=== PATIENT | male | born 1950 | race Caucasian/White ===

== ENCOUNTER → 2016-12-07 | Outpatient (CLI) | payer MEDICARE ==
[2016-12-07 10:53] LABS: CH 30.7; CHCM 33.5; HCT 40.2 % (39.0-53.0); HDW 2.89; MCH 29.8 pg (25.0-35.0); MCHC 32.3 g/dL (31.0-37.0); MCV 92.1 fL (80.0-100.0); Mean Platelet Volume 7.1; RBC 4.36 m/uL (4.30-5.90); RDW 13.4 % (11.5-15.5); WBC 9.5 k/uL (3.8-10.6)
[2016-12-07 11:23] LABS: Anion Gap 15 mmol/L; Blood Urea Nitrogen 12 mg/dL (9-20); Calcium 9.8 mg/dL (8.4-10.2); Carbon Dioxide 23 mmol/L (22-30); Chloride 105 mmol/L (98-107); Glucose 113 mg/dL (74-99); Non-African American GFR(MDRD) >60 (>60 ml/min/1.73 sqM); Potassium 4.5 mmol/L (3.5-5.1); Sodium 143 mmol/L (137-145)
== END | disposition home or self-care (01) ==
LOC: LABPAT 09:48
PROVIDERS: ATTEND Internal Medicine Clinical Cardiac Electrophysiology
DX: I10 Essential (primary) hypertension (principal); I48.1 Persistent atrial fibrillation
CPT/HCPCS: 36415; 80048; 85027

== ENCOUNTER 2017-01-13 09:29 | Day surgery (SDC) | payer MEDICARE ==
[2017-01-11 08:44] VITALS: BMI 30.1
[~2017-01-13 09:29] MED LIST: LACTATED RINGERS 1,000 ML IV SCH; LIDOCAINE 1% 20 ML VIAL (10MG/ML) FOR IV START INTRADERMA PRN
[2017-01-13] MEDS ORDERED: LIDOCAINE 1% 20 ML VIAL (10MG/ML) FOR IV START SQ ONE (09:50)
[2017-01-13 09:59] VITALS: RESP 16; TEMP 98
[2017-01-13] MEDS ORDERED: PROPOFOL 10 MG/ML 20 ML VIAL IV ONE (10:31)
--- NOTE | 2017-01-13 10:59 | P.PCN ---
Date of Procedure: 01/13/17 Procedure(s) Performed: Brief history: Patient is a pleasant 66-year-old white male, scheduled for an elective upper endoscopy as well as colonoscopy as a part of evaluation of long-standing history of gastroesophageal reflux symptoms and screening for colorectal neoplasia. He has been on Protonix 40 mg twice daily and continues to do well. He denies any dysphagia or odynophagia. Procedure performed: Esophagogastroduodenoscopy and biopsy Colonoscopy snare polypectomy: Preoperative diagnosis: GERD Screening for colon cancer Anesthesia: MAC Procedure: After informed consent was obtained from the patient was brought into the endoscopy unit and IV conscious sedation was administered by anesthesia under continuous monitoring. Initially upper endoscopy was done. The Olympus GF 160 video endoscope was inserted inserted into the mouth and esophagus intubated without any difficulty and was gradually advanced into the stomach and duodenum and carefully examined. The bulb and second part of the duodenum appeared normal. The scope was then withdrawn into the stomach adequately insufflated with air and upon careful examination the antrum had mild gastritis and biopsies were done from this area. The body, cardia and fundus appeared normal. The scope was then withdrawn into the esophagus. The GE junction was located at 40 cm to the incisors. It appeared regular with no erythema erosions or ulcerations. Rest of the esophagus appeared normal. Patient tolerated the procedure well. At this time the patient continued to remain sedation. Initial digital rectal examination was normal. Olympus CF 160 video colonoscope was then inserted into the rectum and gradually advanced to the cecum without any difficulty. Careful examination was performed as the scope was gradually being withdrawn. The prep was excellent. In the base of the cecum there was a 1 cm polyp removed by snare polypectomy in the ascending colon there were 2 polyps measuring 1 cm in size removed by snare polypectomy. In the transverse colon there were 2 polyps measuring 5 mm each removed by snare polypectomy. In the sigmoid colon and descending colon there was a 1 cm polyp respectively in each areas which were removed by snare polypectomy. The rectum appeared normal . Retroflexion was performed in the rectum and no lesions were noted. Patient tolerated the procedure well. Impression: 1. Upper endoscopy revealed mild antral gastritis but no evidence of esophagitis or peptic ulcer disease 2. Colonoscopy revealed a) 1 cm cecal polyp status post polypectomy b) 1 cm 2 ascending colon polyp status post polypectomy c) 5 mm 2 transverse colon polyp status post polypectomy d) 1 cm descending colon polyp serous was snare polypectomy e) 1 cm sigmoid polyp status post snare polypectomy Recommendations: Findings of this examination were discussed with the patient as well as his family. He was advised to follow with the biopsy results. He will continue Protonix 40 mg twice daily and follow antireflux measures. If the biopsies of the colon polyp showed tubular adenoma he can have a repeat colonoscopy in 3 years
[2017-01-13 11:40] VITALS: BP 140/89; PULSE 55
== END 2017-01-13 12:22 | disposition home or self-care (01) ==
LOC: ORWHC2ENDO 09:29
PROVIDERS: ATTEND Internal Medicine Gastroenterology
DX: Z12.11 Encounter for screening for malignant neoplasm of colon (principal); D12.0 Benign neoplasm of cecum; D12.2 Benign neoplasm of ascending colon; D12.3 Benign neoplasm of transverse colon; D12.4 Benign neoplasm of descending colon; D12.5 Benign neoplasm of sigmoid colon; K21.9 Gastro-esophageal reflux disease without esophagitis; K29.50 Unspecified chronic gastritis without bleeding; I10 Essential (primary) hypertension; E78.5 Hyperlipidemia, unspecified; I48.91 Unspecified atrial fibrillation; M19.90 Unspecified osteoarthritis, unspecified site; Z79.01 Long term (current) use of anticoagulants; Z79.899 Other long term (current) drug therapy
CPT/HCPCS: 88305; 88342; 45385; 43239; J2704; 99153

== ENCOUNTER → 2017-02-06 | Outpatient (CLI) | payer MEDICARE ==
--- NOTE | 2017-02-07 07:11 | XR ---
EXAMINATION TYPE: XR chest 2V DATE OF EXAM: 02/06/2017 10:13 AM COMPARISON: Prior chest x-ray February 20, 2016 HISTORY: Cough and congestion for 3 weeks. TECHNIQUE: Frontal and lateral views of the chest are obtained. FINDINGS: There is no focal air space opacity, pleural effusion, or pneumothorax seen. Underlying em physematous change is seen. The cardiac silhouette size is within normal limits. Metallic hardware l eft shoulder level is once again partially imaged. Multilevel spurring in thoracic spine is present. IMPRESSION: No acute pulmonary process.
== END | disposition home or self-care (01) ==
LOC: RADXRYALE 10:01
PROVIDERS: ATTEND Physician Assistant Medical
DX: J18.0 Bronchopneumonia, unspecified organism (principal)
CPT/HCPCS: 71020

== ENCOUNTER → 2018-05-22 | Outpatient (CLI) | payer MEDICARE ==
[2018-05-22 12:34] LABS: HCT 40.4 % (39.0-53.0); MCH 28.8 pg (25.0-35.0); MCHC 32.1 g/dL (31.0-37.0); MCV 89.8 fL (80.0-100.0); Mean Platelet Volume 6.7; Platelet Count 252 k/uL (150-450); RDW 14.5 % (11.5-15.5)
[2018-05-22 12:44] LABS: Potassium 4.7 mmol/L (3.5-5.1)
== END | disposition home or self-care (01) ==
LOC: LABPAT 12:02
PROVIDERS: ATTEND Internal Medicine Interventional Cardiology
DX: Z01.812 Encounter for preprocedural laboratory examination (principal); I48.1 Persistent atrial fibrillation
CPT/HCPCS: 36415; 80051; 82565; 84520; 85027

== ENCOUNTER → 2018-05-29 | Day surgery (SDC) | payer MEDICARE ==
[2018-05-25 15:33] VITALS: BMI 28.7
[~2018-05-29] MED LIST changes: +ACETAMINOPHEN TAB 325 MG TAB PO PRN; +ALLOPURINOL 300 MG TAB PO SCH; +ATORVASTATIN 80 MG TAB PO SCH; +CHOLECALCIFEROL 1,000 UNIT TAB PO SCH; +CITALOPRAM HYDROBROMIDE 20 MG TAB PO SCH; +COLCHICINE 0.6 MG EACH PO PRN; +FENOFIBRATE NANOCRYSTALLIZED 145 MG PO SCH; +FEXOFENADINE HCL 180 MG PO SCH; +FLECAINIDE 50 MG TAB PO SCH; +LIDOCAINE 1% INJ 10MG/ML (20 ML MDV) ONE; +METOPROLOL TARTRATE 50 MG TAB PO SCH; +MIDAZOLAM 2 MG/2 ML VIAL ONE; +NON-FORMULARY DRUG (Losartan Potassium [Losartan Potassium] 100 MG) PO SCH; +NON-FORMULARY DRUG (Multivitamin [Men's Multi-Vitamin] 1 EACH) PO SCH; +PANTOPRAZOLE 40 MG TABLET PO SCH; +PROPOFOL 10 MG/ML 20 ML VIAL IV ONE; +RIVAROXABAN 10 MG TAB PO SCH; +SODIUM CHLORIDE 0.9% 1,000 ML IV ONE; +SODIUM CHLORIDE 0.9% 1,000 ML IV SCH
[2018-05-29 07:52] VITALS: TEMP 97.5
--- NOTE | 2018-05-29 08:00 | ECHOT ---
TRANSESOPHAGEAL ECHOCARDIOGRAM INDICATION: Evaluation of left atrial appendage. PROCEDURE: After explaining the procedure to the patient as well as risks and the complications, blood pressure, heart rate, O2 saturation was monitored. The throat was sprayed with Cetacaine. He received sedation per anesthesia department. The probe was introduced in the esophagus without difficulty. Images were obtained. Following that, the probe was removed. There was no immediate complication. FINDINGS: Left atrial size is dilated. Left atrial appendage is normal. Left ventricular size and systolic function normal. The aortic valve is normal. Mitral valve is normal. Tricuspid valve is normal. Descending thoracic aorta appears to be normal. No pericardial effusion was noted. Contrast bubble study revealed no evidence of significant shunting across the interatrial septum. Doppler, pulse wave and color Doppler obtained, revealed moderate mitral with mild tricuspid regurgitation. There was evidence of patent foramen ovale with [id number] shunting. CONCLUSION: 1. Dilated left atrium with normal appearance left atrial appendage. 2. Normal left ventricular size and systolic function. 3. Moderate mitral with mild tricuspid regurgitation. 4. Patent foramen ovale. 5. Normal appearance of the descending thoracic aorta. MMODL / IJN: [id number] /
--- NOTE | 2018-05-29 08:06 | CE ---
CARDIAC ELECTROPHYSIOLOGY REPORT CARDIOVERSION PROCEDURE NOTE: INDICATION: Atrial fibrillation. After I explained the procedure to the patient as well as risks and the complications and performing transesophageal echocardiogram and obtaining sedated state per anesthesia department, a synchronized biphasic cardioversion using 200 joules was successful in restoring normal sinus rhythm. There was no immediate complication. BRUNILDA / ALISSA: [id number] /
[2018-05-29 08:32] VITALS: RESP 16
[2018-05-29 09:20] VITALS: BP 106/65; PULSE 58
== END | disposition home or self-care (01) ==
LOC: CATHCVL 05:58
PROVIDERS: ATTEND Internal Medicine Interventional Cardiology
DX: I48.1 Persistent atrial fibrillation (principal); I08.1 Rheumatic disorders of both mitral and tricuspid valves; I10 Essential (primary) hypertension; E78.2 Mixed hyperlipidemia; Q21.1 Atrial septal defect; G47.33 Obstructive sleep apnea (adult) (pediatric); K21.9 Gastro-esophageal reflux disease without esophagitis; F17.210 Nicotine dependence, cigarettes, uncomplicated; Z79.01 Long term (current) use of anticoagulants; Z79.899 Other long term (current) drug therapy; Z96.653 Presence of artificial knee joint, bilateral
CPT/HCPCS: 93312; 93320; 93325; 92960; J2250; J2001; J2704; 93005

== ENCOUNTER → 2018-09-05 | Outpatient (CLI) | payer MEDICARE ==
[2018-09-05 13:37] LABS: HCT 45.2 % (39.0-53.0); HGB 14.5 gm/dL (13.0-17.5); MCH 28.9 pg (25.0-35.0); MCHC 32.1 g/dL (31.0-37.0); MCV 90.1 fL (80.0-100.0); Platelet Count 300 k/uL (150-450); RBC 5.02 m/uL (4.30-5.90); RDW 14.7 % (11.5-15.5); WBC 10.2 k/uL (3.8-10.6)
[2018-09-05 13:48] LABS: Potassium 5.2 mmol/L (3.5-5.1)
== END ==
LOC: LABPAT 11:34
PROVIDERS: ATTEND Internal Medicine Interventional Cardiology
DX: Z01.812 Encounter for preprocedural laboratory examination (principal); I48.1 Persistent atrial fibrillation; I10 Essential (primary) hypertension; R07.9 Chest pain, unspecified
CPT/HCPCS: 36415; 80051; 82565; 84520; 85027

== ENCOUNTER → 2018-09-12 | Day surgery (SDC) | payer MEDICARE ==
[2018-09-06 14:27] VITALS: BMI 28.7
[~2018-09-12] MED LIST changes: -ACETAMINOPHEN TAB 325 MG TAB PO PRN; -ALLOPURINOL 300 MG TAB PO SCH; +ALPRAZolam 0.25 MG TAB PO PRN; +ALPRAZolam 0.5 MG TAB PO PRN; +ASPIRIN 325 MG TAB PO ONE; +ATORVASTATIN 80 MG TAB PO ONE; -ATORVASTATIN 80 MG TAB PO SCH; -CHOLECALCIFEROL 1,000 UNIT TAB PO SCH; -CITALOPRAM HYDROBROMIDE 20 MG TAB PO SCH; -COLCHICINE 0.6 MG EACH PO PRN; -FENOFIBRATE NANOCRYSTALLIZED 145 MG PO SCH; -FEXOFENADINE HCL 180 MG PO SCH; -FLECAINIDE 50 MG TAB PO SCH; +HEPARIN SODIUM 1,000 UN/ML (10ML VL) IV ONE; +IOPAMIDOL-370 125ML BTL INJ ONE; -LACTATED RINGERS 1,000 ML IV SCH; -LIDOCAINE 1% 20 ML VIAL (10MG/ML) FOR IV START INTRADERMA PRN; -LIDOCAINE 1% INJ 10MG/ML (20 ML MDV) ONE; +LIDOCAINE 1% INJ 10MG/ML (20 ML MDV) SQ ONE; -METOPROLOL TARTRATE 50 MG TAB PO SCH; +MIDAZOLAM 2 MG/2 ML VIAL IV ONE; -MIDAZOLAM 2 MG/2 ML VIAL ONE; +NITROGLYCERIN SL TABS 0.4 MG TAB SUBLINGUAL PRN; -NON-FORMULARY DRUG (Losartan Potassium [Losartan Potassium] 100 MG) PO SCH; -NON-FORMULARY DRUG (Multivitamin [Men's Multi-Vitamin] 1 EACH) PO SCH; -PANTOPRAZOLE 40 MG TABLET PO SCH; -PROPOFOL 10 MG/ML 20 ML VIAL IV ONE; -RIVAROXABAN 10 MG TAB PO SCH; -SODIUM CHLORIDE 0.9% 1,000 ML IV ONE; -SODIUM CHLORIDE 0.9% 1,000 ML IV SCH; +SODIUM CHLORIDE 0.9% 1,000 ML in EMPTY BAG 1 BAG IV ONE; +VERAPAMIL SYRINGE (5 MG/10 ML) INTRAARTER ONE; +fentaNYL (PF) 50 MCG/ML 2 ML AMP IV ONE
[2018-09-12 09:26] VITALS: RESP 18; TEMP 98.4
[2018-09-12 10:01] LABS: Basophils # (A) 0.1 k/uL (0-0.2); Basophils % (A) 1 %; Eosinophils # (A) 0.4 k/uL (0-0.7); Eosinophils % (A) 4 %; HGB 13.5 gm/dL (13.0-17.5); Lymphocytes # (A) 3.4 k/uL (1.0-4.8); Lymphocytes % (A) 36 %; MCH 29.6 pg (25.0-35.0); MCHC 32.2 g/dL (31.0-37.0); MCV 91.9 fL (80.0-100.0); Mean Platelet Volume 6.8; Monocytes # (A) 0.6 k/uL (0-1.0); Monocytes % (A) 6 %; Neutrophils # (A) 4.7 k/uL (1.3-7.7); Neutrophils % (A) 51 %; Platelet Count 269 k/uL (150-450); RBC 4.57 m/uL (4.30-5.90); RDW 14.7 % (11.5-15.5); WBC 9.2 k/uL (3.8-10.6)
[2018-09-12 10:11] LABS: Calcium 9.7 mg/dL (8.4-10.2); Potassium 4.4 mmol/L (3.5-5.1)
--- NOTE | 2018-09-12 14:44 | CC ---
CARDIAC CATHETERIZATION REPORT Kristofer is a 67-year-old male with a known history of hypertension, history of hyperlipidemia, prior history of atrial fibrillation, who recently presented with symptoms of progressive dyspnea, fatigue and chest discomfort. He was noted to be back in atrial fibrillation. In view of his symptoms and his history, recommendation made regarding cardiac catheterization, the procedure, its risks and complication were discussed with the patient who is in full understanding and agreement. PROCEDURE: Patient was brought to the [facility] in a fasting semi-sedate state after receiving fentanyl and Benadryl and achieving moderate conscious sedated state. Using Xylocaine anesthesia and Seldinger technique, a 6-Azeri sheath was introduced in the right radial artery. Selective right and left coronary angiography performed using 5-Azeri, 3.5 bend right and left Martin catheter, multiple views of the coronary artery including hemiaxial views were obtained. Following that, a 5-Azeri tight pigtail catheter was introduced in the left ventricle and pressures were calculated. Following that, catheter and sheaths were removed. Hemostasis was obtained with deployment of a TR band. There was no immediate complication. The patient was returned to his room in stable condition. Of note, patient received 5000 units of intravenous heparin as well as intra-arterial verapamil. FINDINGS: LEFT MAIN: This is a large-sized vessel, bifurcating into left circumflex, left anterior descending artery, left main coronary artery has no evidence of high-grade stenosis. LEFT ANTERIOR DESCENDING ARTERY: This is a large-sized vessel, reaching toward the apex with a wraparound apex segment, giving rise to a moderately-sized diagonal branch. The left anterior descending artery as well as branches have no evidence of obstructive coronary disease. LEFT CIRCUMFLEX: This is a large dominant vessel, giving rise to 3 obtuse marginal branches, distally bifurcating into PDA and posterolateral segment and branches. The third obtuse marginal branch is the largest. The left circumflex as well as branches have no evidence of obstructive coronary artery disease. RIGHT CORONARY ARTERY: This is a nondominant vessel, small in caliber, giving rise to an acute marginal branch. The right coronary artery has no evidence of high-grade stenosis. LEFT VENTRICULOGRAM: Left ventriculogram is not performed. HEMODYNAMICS: There was no gradient across the aortic valve. The left ventricular end-diastolic pressure was 12 to 16 mmHg. CONCLUSION: 1. Normal coronary arteries. 2. Dominant left system. RECOMMENDATION: In view of finding anatomy, I recommend continue medical therapy with aggressive risk modifications being initiated. Those findings and recommendation were discussed with the patient who was in full understanding and agreement. MMODL / IJN: [id number] /
[2018-09-12 18:03] VITALS: BP 108/68; PULSE 76
== END ==
LOC: CATHCVL 08:34
PROVIDERS: ATTEND Internal Medicine Interventional Cardiology
DX: R07.89 Other chest pain (principal); R53.83 Other fatigue; R06.00 Dyspnea, unspecified; I48.1 Persistent atrial fibrillation; I10 Essential (primary) hypertension; E78.2 Mixed hyperlipidemia; G47.33 Obstructive sleep apnea (adult) (pediatric); F17.210 Nicotine dependence, cigarettes, uncomplicated; Z79.01 Long term (current) use of anticoagulants; Z79.899 Other long term (current) drug therapy
CPT/HCPCS: 93458; 80048; 85025; C1769 ×2; C1894; J2250; J2001; J3010; J1644; Q9967

== ENCOUNTER 2018-10-06 12:17 | Emergency (ER) | payer MEDICARE ==
--- NOTE | 2018-10-06 12:38 | ED ---
General Adult HPI - General Chief complaint: Fall Stated complaint: fall Time Seen by Provider: 10/06/18 12:28 Source: patient, RN notes reviewed Mode of arrival: ambulatory Limitations: no limitations - History of Present Illness Initial comments: Patient is a 67-year-old male presented to the emergency room today with a chief complaint of a trip and fall that occurred 2 days ago. Patient does admit that there is areas walking out of a camper when he got tangled up lost balance falling down 2 steps landing on his head. Patient does admit that he felt like something snapped in his neck. Patient admits that he does not believe that he lost consciousness. He states he has had a headache since. Is on blood thinner Eliquis due to A. fib. Patient does admit to neck pain is worse with movements of both flexion and extension and also worse with rotation to the left and right. Patient states she's tried some ibuprofen at home for the pain. He denies any other complaints or symptoms. Patient denies any recent fever, chills, shortness of breath, chest pain, back pain, abdominal pain , nausea or vomiting, constipation or diarrhea, visual changes, or any other complaints. - Related Data Home Medications Medication Instructions Recorded Confirmed Atorvastatin [Lipitor] 80 mg PO DAILY 02/20/16 09/12/18 Pantoprazole [Protonix] 40 mg PO BID 02/20/16 09/12/18 Acetaminophen Tab [Tylenol Tab] 650 mg PO Q6H PRN 04/05/16 09/12/18 Metoprolol Tartrate [Lopressor] 50 mg PO BID 04/05/16 09/12/18 Allopurinol [Zyloprim] 300 mg PO HS 12/13/16 09/12/18 Multivitamin [Men's Multi-Vitamin] 1 each PO DAILY 01/11/17 09/12/18 Cholecalciferol [Vitamin D3] 1,000 unit PO DAILY 05/25/18 09/12/18 Citalopram Hydrobromide [CeleXA] 20 mg PO DAILY 05/25/18 09/12/18 Fenofibrate Nanocrystallized 145 mg PO DAILY 05/25/18 09/12/18 [Tricor] Fexofenadine HCl 180 mg PO HS 05/25/18 09/12/18 Losartan Potassium 100 mg PO DAILY 05/25/18 09/12/18 Amiodarone [Cordarone] 200 mg PO DAILY 09/12/18 09/12/18 Previous Rx's Medication Instructions Recorded Rivaroxaban [Xarelto] 20 mg PO W/SUPPER tab 02/22/16 Cyclobenzaprine [Flexeril] 10 mg PO TID #20 tab 10/06/18 Hydrocodone/Acetaminophen [Tamworth 1 each PO Q6HR PRN #12 tab 10/06/18 5-325] Allergies Allergy/AdvReac Type Severity Reaction Status Date / Time No Known Allergies Allergy Verified 10/06/18 12:22 Review of Systems ROS Statement: Those systems with pertinent positive or pertinent negative responses have been documented in the HPI. ROS Other: All systems not noted in ROS Statement are negative. Past Medical History Past Medical History: Atrial Fibrillation, GERD/Reflux, Hyperlipidemia, Hypertension, Osteoarthritis (OA) Additional Past Medical History / Comment(s): SOB, Hx GOUT History of Any Multi-Drug Resistant Organisms: None Reported Past Surgical History: Appendectomy, Joint Replacement, Orthopedic Surgery Additional Past Surgical History / Comment(s): cardioversion,TOTAL LEFT SHOULDER. RIGHT AND LEFT TOTAL KNEE Past Anesthesia/Blood Transfusion Reactions: No Reported Reaction Additional Past Anesthesia/Blood Transfusion Reaction / Comment(s): no hx blood transfusion Past Psychological History: Anxiety, Depression Smoking Status: Former smoker Past Alcohol Use History: None Reported Past Drug Use History: None Reported - Past Family History Son(s) Family Medical History: No Reported History Mother Family Medical History: No Reported History General Exam - General Exam Comments Initial Comments: General: The patient is awake and alert, in no distress, and does not appear acutely ill. Eye: Pupils are equal, round and reactive to light. Extra-ocular movements are intact. No nystagmus. There is normal conjunctiva bilaterally. No signs of icterus. Ears, nose, mouth and throat: There are moist mucous membranes and no oral lesions. Neck: The neck is supple, there is no tenderness or JVD. Cardiovascular: There is a regular rate and rhythm. No murmur, rub or gallop is appreciated. Respiratory: Lungs are clear to auscultation, respirations are non-labored, breath sounds are equal. No wheezes, stridor, rales, or rhonchi. Musculoskeletal: Normal ROM, no tenderness. Sensation intact. Strength 5/5. Pulses equal bilaterally 2+. Neurological: A&O x 3. CN II-XII intact, There are no obvious motor or sensory deficits. Coordination appears grossly intact. Speech is normal. Skin: Skin is warm and dry and no rashes or lesions are noted. Psychiatric: Cooperative, appropriate mood & affect, normal judgment. Limitations: no limitations Course Vital Signs 10/06/18 10/06/18 10/06/18 12:20 12:58 13:00 Temperature 97.8 F Pulse Rate 68 66 Respiratory 20 20 Rate Blood Pressure 170/104 145/94 O2 Sat by Pulse 99 98 97 Oximetry Medical Decision Making - Medical Decision Making Patient reexamined at this time shows no signs of distress. His CT of his head and neck is negative for any acute abnormalities. Results were discussed with the patient. Patient will be given a prescription for muscle relaxer and Tamworth. Patient advised follow family physician return if symptoms increase worsen. Disposition Clinical Impression: Fall, Cervical strain, acute Disposition: HOME SELF-CARE Condition: Good Instructions: Cervical Strain (ED) Additional Instructions: Please use medication as discussed. Please follow-up with family doctor in the next 2 days of symptoms have not improved. Please return to emergency room if the symptoms increase or worsen or for any other concerns. Prescriptions: Cyclobenzaprine [Flexeril] 10 mg PO TID #20 tab Hydrocodone/Acetaminophen [Tamworth 5-325] 1 each PO Q6HR PRN #12 tab PRN Reason: Pain Is patient prescribed a controlled substance at d/c from ED?: Yes If prescribed controlled substance>3 days was MAPS reviewed?: Prescribed <3 Days Referrals: Jf Reddy DO [Primary Care Provider] - 1-2 days Time of Disposition: 13:34
--- NOTE | 2018-10-06 13:16 | CT ---
EXAMINATION TYPE: CT brain khanh camejo con DATE OF EXAM: 10/06/2018 COMPARISON: Previous study dated 12/18/2012. HISTORY: Fall CT DLP: 1161.8 mGycm Automated exposure control for dose reduction was used. TECHNIQUE: CT scan of the head and cervical spine are performed without contrast. FINDINGS: BRAIN: Central structures are midline. There is no evidence of hydrocephalus. There are mild degenera tive changes. There is no acute focal lesion, mass effect or midline shift identified. I do not see e vidence of intracranial blood. Visualized portions of the paranasal sinuses and mastoids are clear. The bony calvarium is intact. IMPRESSION: 1. NO ACUTE INTRACRANIAL ABNORMALITY. 2. MILD DEGENERATIVE CHANGE. CERVICAL SPINE: Visualized portions of the lungs are clear. Prevertebral soft tissues are unremarkabl e. Vertebral body height and alignment are maintained. Atlantoaxial relationships are normal. There is diffuse degenerative disc disease and hypertrophic spondylosis. There is diffuse uncovertebr al joint disease. There is right-sided facet arthropathy at C2-3. No protrusion is identified. No fra cture is seen. IMPRESSION: 1. NO ACUTE OSSEOUS LESION. 2. MODERATE SEVERE DEGENERATIVE CHANGE.
[2018-10-06 13:27] VITALS: PULSE 66
[2018-10-06] MEDS ORDERED: HYDROcodone/APAP 5-325MG 1 EACH TAB PO STA (13:33)
[2018-10-06] MEDS ORDERED: CYCLOBENZAPRINE 10 MG TAB PO STA (13:33)
[2018-10-06 14:02] VITALS: BP 146/90; RESP 18; TEMP 98.7
== END 2018-10-06 14:01 | disposition home or self-care (01) ==
LOC: EC 12:17
DX: S16.1XXA Strain of muscle, fascia and tendon at neck level, initial encounter (principal); R51 Headache; I48.91 Unspecified atrial fibrillation; E78.5 Hyperlipidemia, unspecified; I10 Essential (primary) hypertension; K21.9 Gastro-esophageal reflux disease without esophagitis; M10.9 Gout, unspecified; M19.90 Unspecified osteoarthritis, unspecified site; F32.9 Major depressive disorder, single episode, unspecified; F41.9 Anxiety disorder, unspecified; Z87.891 Personal history of nicotine dependence; Z79.01 Long term (current) use of anticoagulants; Z79.899 Other long term (current) drug therapy; Z96.612 Presence of left artificial shoulder joint; Z96.653 Presence of artificial knee joint, bilateral; Z98.890 Other specified postprocedural states; W10.9XXA Fall (on) (from) unspecified stairs and steps, initial encounter; Y93.01 Activity, walking, marching and hiking; Y92.89 Other specified places as the place of occurrence of the external cause
CPT/HCPCS: 70450; 72125; 99283

== ENCOUNTER → 2019-06-12 | Outpatient (CLI) | payer MEDICARE, OTHER ==
[2019-06-12 15:13] LABS: Basophils # (A) 0.1 k/uL (0-0.2); Basophils % (A) 1 %; Eosinophils # (A) 0.3 k/uL (0-0.7); Eosinophils % (A) 3 %; HGB 12.9 gm/dL (13.0-17.5); Lymphocytes # (A) 3.1 k/uL (1.0-4.8); Lymphocytes % (A) 28 %; MCH 29.3 pg (25.0-35.0); MCHC 32.3 g/dL (31.0-37.0); MCV 90.7 fL (80.0-100.0); Monocytes # (A) 0.7 k/uL (0-1.0); Monocytes % (A) 6 %; Neutrophils # (A) 6.4 k/uL (1.3-7.7); Neutrophils % (A) 59 %; Platelet Count 252 k/uL (150-450); RBC 4.41 m/uL (4.30-5.90); WBC 10.8 k/uL (3.8-10.6)
[2019-06-12 16:44] LABS: Erythrocyte Sedimentation Rate 8 mm/hr (0-15)
== END | disposition home or self-care (01) ==
LOC: LABWHC1 14:36
PROVIDERS: ATTEND Orthopaedic Surgery
DX: A49.9 Bacterial infection, unspecified (principal)
CPT/HCPCS: 36415; 85025; 85652; 86140

== ENCOUNTER → 2019-07-11 | Outpatient (CLI) | payer MEDICARE, OTHER ==
--- NOTE | 2019-07-11 11:37 | US ---
EXAMINATION TYPE: US venous doppler duplex LE RT DATE OF EXAM: 07/11/2019 11:25 AM COMPARISON: NONE CLINICAL HISTORY: I80.9 Calf pain;M25.561 pain in right knee. Pt states pain within right knee SIDE PERFORMED: Right TECHNIQUE: The lower extremity deep venous system is examined utilizing real time linear array sonog nadeem with graded compression, doppler sonography and color-flow sonography. VESSELS IMAGED: External Iliac Vein (EIV) Common Femoral Vein Deep Femoral Vein Greater Saphenous Vein * Femoral Vein Popliteal Vein Small Saphenous Vein * Proximal Calf Veins (* superficial vessels) Grayscale, color doppler, spectral doppler imaging performed of the deep veins of the right lower ext remity. There is normal flow, compressibility, vascular waveforms. Right Leg: Negative for DVT, complex fluid collection superior right calf, lateral to popliteal vess els= 6.7 x 2.1 x 4.1 cm Results called to Nori at Dr's office at time of exam IMPRESSION: 1. No sonographic evidence of deep venous thrombosis within the right lower extremity. 2. 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
== END | disposition home or self-care (01) ==
LOC: RADUSWWP 10:21
PROVIDERS: ATTEND Orthopaedic Surgery
DX: I80.9 Phlebitis and thrombophlebitis of unspecified site (principal); M54.31 Sciatica, right side; M54.5 Low back pain; Z96.651 Presence of right artificial knee joint

== ENCOUNTER → 2019-08-13 | Outpatient (CLI) | payer MEDICARE, OTHER ==
--- NOTE | 2019-08-13 10:52 | XR ---
EXAMINATION TYPE: XR chest 2V DATE OF EXAM: 08/13/2019 COMPARISON: Chest x-ray February 06, 2017. HISTORY: Presurgical study. TECHNIQUE: Frontal and lateral views of the chest are obtained. FINDINGS: There is chronic parenchymal change without suspicious focal air space opacity, pleural ef fusion, or pneumothorax seen. The cardiac silhouette size is within normal limits. Metallic hardware from left shoulder surgery is partially imaged. Multilevel spurring of thoracic spine is seen. IMPRESSION: Chronic changes without acute pulmonary process.
== END ==
LOC: RADXRYALE 10:38
PROVIDERS: ATTEND Family Medicine
DX: Z01.818 Encounter for other preprocedural examination (principal); Z01.812 Encounter for preprocedural laboratory examination
CPT/HCPCS: 71046

== ENCOUNTER → 2020-03-27 | Outpatient (CLI) | payer MEDICARE, OTHER ==
[2020-03-27 15:45] LABS: African American GFR (CKD) 38.3 (60.0-200.0); Albumin 4.5 g/dL (3.80-4.90); Albumin/Globulin Ratio 1.8 (1.60-3.17); Anion Gap 12.3 mmol/L (4.00-12.00); BUN/Creat Ratio 15.5 Ratio (12.00-20.00); Calcium 9.7 mg/dL (8.7-10.3); Carbon Dioxide 23.7 mmol/L (21.6-31.8); Globulin 2.5 g/dL (1.6-3.3); Non-African American GFR(CKD) 33.1 (60.0-200.0); Potassium 4.6 mmol/L (3.5-5.5); Total Bilirubin 0.8 mg/dL (0.3-1.2)
== END | disposition home or self-care (01) ==
LOC: LABWHC1 10:34
PROVIDERS: ATTEND Nurse Practitioner Adult Health
DX: N18.9 Chronic kidney disease, unspecified (principal); I48.21 Permanent atrial fibrillation
CPT/HCPCS: 36415; 80053; 84443

== ENCOUNTER 2020-04-02 05:58 | Day surgery (SDC) | payer MEDICARE, OTHER ==
[2020-04-01 12:27] VITALS: BMI 29.4
[~2020-04-02 05:58] MED LIST changes: -ALPRAZolam 0.25 MG TAB PO PRN; -ALPRAZolam 0.5 MG TAB PO PRN; -ASPIRIN 325 MG TAB PO ONE; -ATORVASTATIN 80 MG TAB PO ONE; -HEPARIN SODIUM 1,000 UN/ML (10ML VL) IV ONE; -IOPAMIDOL-370 125ML BTL INJ ONE; +LACTATED RINGERS 1,000 ML IV SCH; -LIDOCAINE 1% INJ 10MG/ML (20 ML MDV) SQ ONE; -MIDAZOLAM 2 MG/2 ML VIAL IV ONE; -NITROGLYCERIN SL TABS 0.4 MG TAB SUBLINGUAL PRN; +SODIUM CHLORIDE 0.9% 1,000 ML IV SCH; -SODIUM CHLORIDE 0.9% 1,000 ML in EMPTY BAG 1 BAG IV ONE; -VERAPAMIL SYRINGE (5 MG/10 ML) INTRAARTER ONE; -fentaNYL (PF) 50 MCG/ML 2 ML AMP IV ONE
[2020-04-02 06:31] VITALS: TEMP 97.9
[2020-04-02] MEDS ORDERED: PROPOFOL 10 MG/ML 20 ML VIAL IV ONE (07:12)
[2020-04-02] MEDS: BENZOCAINE SPRAY 1 CAN MUCOUS MEM ONE ×2 (07:25→07:30)
[2020-04-02] MEDS ORDERED: SODIUM CHLORIDE 0.9% 1,000 ML IV SCH (08:00)
[2020-04-02] MEDS ORDERED: LACTATED RINGERS 1,000 ML IV ONE (08:28)
[2020-04-02] MEDS ORDERED: METOPROLOL TARTRATE 50 MG TAB PO SCH (09:00)
[2020-04-02] MEDS ORDERED: CHOLECALCIFEROL 1,000 UNIT TAB PO SCH (09:00)
[2020-04-02] MEDS ORDERED: MULTIVITAMIN PO SCH (09:00)
[2020-04-02] MEDS ORDERED: CITALOPRAM HYDROBROMIDE 40 MG PO SCH (09:00)
[2020-04-02] MEDS ORDERED: PANTOPRAZOLE 40 MG TABLET PO SCH (09:00)
[2020-04-02] MEDS ORDERED: NON FORMULARY DRUG (Losartan Potassium [Losartan Potassium] 100 MG) PO SCH (09:00)
[2020-04-02] MEDS ORDERED: ATORVASTATIN 80 MG TAB PO SCH (09:00)
--- NOTE | 2020-04-02 10:07 | ECHOT ---
TRANSESOPHAGEAL ECHOCARDIOGRAM INDICATION: Evaluation left atrial appendage. PROCEDURE: After explaining the procedure to the patient, its risks and the complications, his blood pressure, heart rate, O2 saturation was monitored. The throat was sprayed with Cetacaine. He received sedation per anesthesia department. The probe was introduced into the esophagus without difficulty. Images were obtained. Following that, the probe was removed. There was no immediate complication. FINDINGS: Left atrial size is mildly dilated. Left atrial appendage is normal. Left ventricular size and systolic function normal. The aortic valve, mitral valve and tricuspid valve is normal, descending thoracic aorta appears normal. Contrast bubble study revealed evidence of shunting through a patent foramen ovale and no pericardial effusion was noted. Doppler pulse wave and color Doppler obtained and revealed a mild mitral with moderate tricuspid regurgitation. Patent foramina ovale with [id number] shunting. CONCLUSION: 1. Dilated left atrium with normal appearance left atrial appendage. 2. Normal left ventricular size and systolic function. 3. Mild mitral with moderate tricuspid regurgitation. 4. Patent foramina ovale with shunting by contrast bubble study. 5. Normal appearance of the descending thoracic aorta. 6. No pericardial effusion. MMODL / IJN: [id number] /
[2020-04-02 10:25] VITALS: BP 103/63; PULSE 60; RESP 16
--- NOTE | 2020-04-02 10:34 | CE ---
CARDIAC ELECTROPHYSIOLOGY REPORT CARDIOVERSION PROCEDURE NOTE: INDICATION: Atrial fibrillation. PROCEDURE: After explaining the procedure to the patient, its risks and complication, after performing transesophageal echocardiogram and obtaining sedated state, a synchronized biphasic cardioversion using 200 joules was performed that was unsuccessful. Subsequently, 250 joules cardioversion was performed with adventism of normal sinus rhythm. There was no immediate complication. BRUNILDA / JOLANTAN: [id number] /
[2020-04-02] MEDS ORDERED: RIVAROXABAN 10 MG TAB PO SCH (17:30)
[2020-04-02] MEDS ORDERED: AMIODARONE 100 MG TAB PO SCH (21:00)
[2020-04-02] MEDS ORDERED: ALLOPURINOL 300 MG TAB PO SCH (21:00)
[2020-04-02] MEDS ORDERED: FEXOFENADINE HCL 180 MG PO SCH (21:00)
[2020-04-02] MEDS ORDERED: FENOFIBRATE NANOCRYSTALLIZED 145 MG PO SCH (21:00)
== END 2020-04-02 10:12 | disposition home or self-care (01) ==
LOC: CATHCVL 05:58
PROVIDERS: ATTEND Internal Medicine Interventional Cardiology
DX: I08.1 Rheumatic disorders of both mitral and tricuspid valves (principal); Q21.1 Atrial septal defect; I48.19 Other persistent atrial fibrillation; I10 Essential (primary) hypertension; E78.2 Mixed hyperlipidemia; G47.33 Obstructive sleep apnea (adult) (pediatric); Z79.01 Long term (current) use of anticoagulants; Z79.899 Other long term (current) drug therapy; Z87.891 Personal history of nicotine dependence
CPT/HCPCS: 92960; 93312; 93320; 93325

== ENCOUNTER → 2020-06-23 | Outpatient (CLI) | payer MEDICARE, OTHER ==
[2020-06-23 21:00] LABS: African American GFR (CKD) 40.8 (60.0-200.0); Albumin 4.5 g/dL (3.80-4.90); Albumin/Globulin Ratio 1.73 (1.60-3.17); Anion Gap 9.7 mmol/L (4.00-12.00); BUN/Creat Ratio 12.11 Ratio (12.00-20.00); Calcium 9.7 mg/dL (8.7-10.3); Carbon Dioxide 22.3 mmol/L (21.6-31.8); Globulin 2.6 g/dL (1.6-3.3); Non-African American GFR(CKD) 35.2 (60.0-200.0); Potassium 4.6 mmol/L (3.5-5.5); Total Bilirubin 0.9 mg/dL (0.2-1.2); Total Protein 7.1 g/dL (6.2-8.2)
== END | disposition home or self-care (01) ==
LOC: LABWHC1 11:38
PROVIDERS: ATTEND Internal Medicine Interventional Cardiology
DX: I48.19 Other persistent atrial fibrillation (principal); E03.9 Hypothyroidism, unspecified
CPT/HCPCS: 36415; 80053; 84443

== ENCOUNTER → 2020-06-24 | Outpatient (CLI) | payer MEDICARE, OTHER ==
--- NOTE | 2020-06-24 11:13 | US ---
EXAMINATION TYPE: US duplex aorta DATE OF EXAM: 06/24/2020 COMPARISON: NONE CLINICAL HISTORY: F17.211 Nicotine dependence, cigarettes,. HTN. EXAM MEASUREMENTS: Abdominal Aorta: Proximal: 2.4 x 2.2 cm Mid: 2.1 x 2.2 cm Distal: 2.0 x 2.1 cm Bifurcation: Right- 1.3 x 0.8 cm Left- 1.3 x 0.8 cm No AAA visualized. Portion of proximal/mid Aorta not visualized due to overlying bowel gas. IMPRESSION: 1. Normal abdomen ultrasound
== END | disposition home or self-care (01) ==
LOC: RADUSWWP 06:50
PROVIDERS: ATTEND Family Medicine
DX: Z09 Encounter for follow-up examination after completed treatment for conditions other than malignant neoplasm (principal); F17.211 Nicotine dependence, cigarettes, in remission
CPT/HCPCS: 93979

== ENCOUNTER → 2020-08-10 | Outpatient (CLI) | payer MEDICARE, OTHER ==
[2020-08-10 14:51] LABS: HCT 37.4 % (39.0-53.0); MCH 29.8 pg (25.0-35.0); MCV 93.2 fL (80.0-100.0); Mean Platelet Volume 7.4; Platelet Count 251 k/uL (150-450); RBC 4.01 m/uL (4.30-5.90); RDW 14.6 % (11.5-15.5); WBC 6.8 k/uL (3.8-10.6)
[2020-08-10 15:07] LABS: Magnesium 1.9 mg/dL (1.6-2.3)
== END | disposition home or self-care (01) ==
LOC: LABPAT 12:33
PROVIDERS: ATTEND Internal Medicine Clinical Cardiac Electrophysiology
DX: Z01.818 Encounter for other preprocedural examination (principal); I48.19 Other persistent atrial fibrillation
CPT/HCPCS: 82565; 83735; 84520; 85027

== ENCOUNTER → 2020-08-27 | Outpatient (CLI) | payer MEDICARE, OTHER ==
--- NOTE | 2020-08-27 16:01 | US ---
EXAMINATION TYPE: US kidneys/renal and bladder DATE OF EXAM: 08/27/2020 COMPARISON: NONE CLINICAL HISTORY: N18.3 Chronic Kidney Disease, stage 3. abn labs EXAM MEASUREMENTS: Right Kidney: 9.0 x 4.4 x 5.1 cm Left Kidney: 11.7 x 4.8 x 5.9 cm Right Kidney: No hydronephrosis or masses seen Left Kidney: No hydronephrosis or masses seen Bladder: wnl Bilateral Jets seen: Yes There is no evidence for hydronephrosis at this point in time. No nephrolithiasis is seen. No enrique s are identified. The urinary bladder is anechoic. Bilateral ureteral jets are seen. IMPRESSION: No distinct abnormality seen.
== END | disposition home or self-care (01) ==
LOC: RADUSWWP 15:33
PROVIDERS: ATTEND Internal Medicine
DX: N18.30 Chronic kidney disease, stage 3 unspecified (principal)
CPT/HCPCS: 76770

== ENCOUNTER 2020-09-07 10:42 | Day surgery (SDC) | payer MEDICARE, OTHER ==
[2020-08-14 11:42] VITALS: BMI 27.9
[2020-09-07] MEDS ORDERED: SODIUM CHLORIDE 0.9% 1,000 ML IV ONE (10:56)
[2020-09-07] MEDS ORDERED: PROPOFOL 10 MG/ML 20 ML VIAL IV ONE (12:15)
[2020-09-07] MEDS ORDERED: LIDOCAINE 1% INJ 10MG/ML (20 ML MDV) ONE ×2 (12:15→12:36)
[2020-09-07] MEDS ORDERED: ROCURONIUM 10 MG/ML (10 ML VIAL) IV ONE (12:15)
[2020-09-07] MEDS ORDERED: fentaNYL (PF) 50 MCG/ML 2 ML AMP ONE (12:15)
[2020-09-07] MEDS ORDERED: HYDROmorphone (PF) 1 MG/ML ONE (12:15)
[2020-09-07] MEDS ORDERED: GLYCOPYRROLATE 0.2 MG/ML 2 ML VIAL ONE (12:15)
[2020-09-07] MEDS ORDERED: PROTAMINE SULFATE 10 MG/ML 5 ML VIAL IV ONE (12:15)
[2020-09-07] MEDS ORDERED: HEPARIN SODIUM,PORCINE 10,000 UNIT/ML 1 ML VIAL ONE (12:15)
[2020-09-07] MEDS ORDERED: NEOSTIGMINE 1 MG/ML 10 ML VIAL ONE (12:15)
[2020-09-07] MEDS ORDERED: SUCCINYLCHOLINE CHLORIDE 100 MG/5 ML SYR IV ONE (12:15)
[2020-09-07] MEDS ORDERED: MIDAZOLAM 2 MG/2 ML VIAL ONE (12:15)
[2020-09-07] MEDS ORDERED: ePHEDrine SULFATE/0.9% NACL/PF 50 MG/5 ML SYRINGE IV ONE (12:15)
[2020-09-07] MEDS ORDERED: LIDOCAINE 1% INJ 10MG/ML (20 ML MDV) SQ ONE (13:15)
[2020-09-07] MEDS ORDERED: HEPARIN SOD,PORK IN 0.45% NACL 25,000 UNIT in 0.45% NACL 1 250ML.BAG IV ONE (13:19)
[2020-09-07] MEDS ORDERED: HEPARIN SODIUM (1,000 UNIT/ML) 1,000 UNIT in SODIUM CHLORIDE 0.9% 1,000 ML IRRIGATION ONE (15:01)
[2020-09-07] MEDS ORDERED: IOPAMIDOL-250 100ML BTL IV ONE (15:05)
[2020-09-07] MEDS ORDERED: LACTATED RINGERS 1,000 ML IV ONE (16:44)
--- NOTE | 2020-09-07 17:46 | P.HPCAR ---
History of Present Illness This is Dr. Ramirez dictating an H/P on this patient The patient was interviewed and examined IMPRESSION / ASSESSMENT: Prolonged episodes of atrial fibrillation lasting between 10-14 days. This is persistent A. fib Symptoms of tiredness and fatigue Despite adequate rate control he continues to feel tired and fatigued Episodes of wide complex tachycardia on the event monitor him a possible aberrant conduction, Hypertension Obstructive sleep apnea Dyslipidemia PLAN: A. fib ablation/EP study HPI Patient complains of recurrent palpitations. Episodes of tiredness fatigue and lack of energy ECG showed relatively organized atrial fibrillation He complains of recurrent palpitations and fatigue He denied any chest discomfort dizziness lightheadedness or loss of consciousness No fever chills no GI symptoms no history symptoms ROS: No fever chills or rigors, no cough, phlegm or expectoration, no nausea, vomiting or diarrhea, no hematuria, dysuria, no musculoskeletal complaints, no strokes or seizures, no skin lesions. EXAMINATION: Afebrile 97.9F, pulse rate in the 60s, blood pressure 161/85 mmHg Breath sounds are clear no rhonchi no crackles Heart sounds are normal regular Abdomen is soft nontender Extremities warm no edema REVIEW OF LABS, ECG & MEDICAL DATA Medications reviewed.Heisonatorvastatin losartan and metoprolol 50 mg 3 times a day TriCor and xarelto Physical Exam Vitals: Vital Signs Temp Pulse Resp BP Pulse Ox 09/07/20 11:11 97.9 F 68 16 161/85 97 Intake and Output 09/07/20 09/07/20 09/07/20 06:59 14:59 22:59 Intake Total 1087 700 Balance 1087 700 Intake: IV 1087 700 Other: Weight 89.7 kg Past Medical History Past Medical History: Atrial Fibrillation, GERD/Reflux, Hyperlipidemia, Hypertension, Osteoarthritis (OA) Additional Past Medical History / Comment(s): See Dr Ramirez's H&P,increased kidney function levels-following with Dr Groves, SOB, Hx GOUT History of Any Multi-Drug Resistant Organisms: None Reported Past Surgical History: Appendectomy, Joint Replacement, Orthopedic Surgery Additional Past Surgical History / Comment(s): cardioversion,TOTAL LEFT SHOULDER. RIGHT X2 AND LEFT X1 TOTAL KNEE. PICC LINE INSERTION AND LATER REMOVED(tx post op knee infection rt knee" Past Anesthesia/Blood Transfusion Reactions: No Reported Reaction Additional Past Anesthesia/Blood Transfusion Reaction / Comment(s): no hx blood transfusion Smoking Status: Current some day smoker - Past Family History Son(s) Family Medical History: No Reported History Mother Family Medical History: No Reported History Physical Examination Vital Signs Temp Pulse Resp BP Pulse Ox 09/07/20 11:11 97.9 F 68 16 161/85 97 Intake and Output 09/07/20 09/07/20 09/07/20 06:59 14:59 22:59 Intake Total 1087 700 Balance 1087 700 Intake: IV 1087 700 Other: Weight 89.7 kg Results 09/07/20 11:07 Comprehensive Metabolic Panel 09/07/20 Range/Units 11:07 Potassium 4.0 (3.5-5.1) mmol/L Current Medications Generic Name Dose Route Start Last Admin Trade Name Freq PRN Reason Stop Dose Admin Sodium Chloride 1,000 mls @ 50 mls/hr 09/07/20 06:11 Saline 0.9% IV .Q20H HAILEY Sodium Chloride 1,000 mls @ 20 mls/hr 09/07/20 06:11 Saline 0.9% IV .Q24H HAILEY Lactated Ringer's 1,000 mls @ 20 mls/hr 09/07/20 06:11 Lactated Ringers IV .Q24H HAILEY Intake and Output 09/07/20 09/07/20 09/07/20 06:59 14:59 22:59 Intake Total 1087 700 Balance 1087 700 Intake: IV 1087 700 Other: Weight 89.7 kg Patient Weight 09/08/20 06:59 Weight 89.7 kg 09/07/20 11:07
[2020-09-07] MEDS ORDERED: ACETAMINOPHEN TAB 325 MG TAB PO PRN (17:50)
[2020-09-07] MEDS ORDERED: HYDROcodone/APAP 5-325MG 1 EACH TAB PO PRN (17:50)
--- NOTE | 2020-09-07 18:14 | P.PCN ---
Preoperative Diagnosis: Diagnosis Atrial fibrillation, symptomatic, refractory to therapy Result No left atrial appendage mass seen on intracardiac echo Successful pulmonary vein isolation of all veins using cryo-ablation Complete entrance block in all 4 veins confirmed No evidence for phrenic nerve injury Esophageal deflection YES Electrical cardioversion with a synchronized shock across the chest NO Extrapulmonary atrial fibrillation sources and atrial reentry First RF ablation in the posterior septum just behind the fossa ovalis resulted in organization to an atrial tachycardia the concentric activation Linear ablation along the septum was performed for management of atrial fibrillation Linear ablation along the left atrial roof was performed with a change in activation and cycle length once again Right atrial septum was mapped and this resulted in mechanical termination of the septal atrial tachycardia with change in the activation pattern This is an eccentric activation now and entrainment mapping revealed mitral reentry. Successful linear ablation of the mitral isthmus was performed Following that the concentric activation of activation was noted once again This was mapped to the anterior septum just proximal to the AV node, and once again mechanical termination with catheter tip pressure was noted at the site of origin of the tachycardia, Since there was no His bundle signal at the site and it was only an atrial signal, a short RF lesion was applied in sinus rhythm This was immediately terminated in a few seconds because of prolongation of the DC interval Patient has residual septal atrial tachycardia originating close to atrial approaches to the AV node Plan Medical treatment for atrial fibrillation. If ablation was performed in the septum at the source of atrial tachycardia site it will result in heart block and will necessitate permanent pacing Successful cryoablation of the pulmonary veins Successful linear ablation with termination of the septal tachycardia Successful termination of the roof tachycardia Successful termination of mitral reentry Mechanical termination along the septum in the right atrium, closest to the approach to the AV node Esophageal deflection YES Electrical cardioversion with a synchronized shock across the chest NO Procedure details Patient was brought to the EP lab in a fasting state. Written informed consent was obtained prior to the procedure. Procedure performed under general anesthesia After initial muscle relaxant use, muscle relaxants were not given thereafter in order to assess phrenic nerve during procedure. Patient prepped and draped as per protocol Full cryo-set up with standard preparation of the cryoablation tools done. Femoral Venous access obtained on the right and left groins Venous and arterial Sheaths placed. Diagnostic catheters for the high right atrium, phrenic nerve stimulation and pacing, His bundle, RV and coronary sinus placed Intracardiac echo catheter placed. Long sheath placed in the right atrium Left and right transseptal catheterization performed under intracardiac echo guidance. Intravenous heparin with aCT above 300 Later, catheter positioning and balloon positioning in the left atrium, under intracardiac echo guidance Diagnostic EP study with Drug infusion Coronary sinus pacing and recording Baseline measurements Atrial pacing performed from the high right atrium and the coronary sinus RV pacing Transseptal catheterization performed RA pressure LA pressure Transseptal catheterization performed with standard sheath. The cryoablation sheath was then placed with an over the wire exchange without any acute complications. All 4 pulmonary veins were isolated in the following sequence: Left superior followed by left inferior followed by right superior followed by right inferior The cryo-ablation balloon was placed at the os of each vein 1.5 mL of IV dye was injected to confirm an occluded vein Goal during cryoablation was to achieve complete occlusion of the pulmonary vein, achieve -30 degrees C at 30 seconds and achieve -40 degrees C at 60 seconds and a time to effect of less than 60-90 seconds, . If not the balloon was repositioned to obtain this result After completion of Cryoblation with durations from 180-240 seconds, entrance block was confirmed with the Attain circular catheter in a roving fashion around the antrum of the pulmonary veins Phrenic nerve pacing was performed from the SVC, right innominate vein area and diaphragm voltage was monitored. Diaphragmatic contractions were also monitored manually for strength of contraction. Parameter goals for each cryo freeze Complete occlusion of the appropriate vein -30 degrees C by 30 seconds -40 degrees C by 60 seconds Minimum between minus 40-55 degrees C Thaw time greater than 10 seconds Balloon visualized by intracardiac echo The esophagus was intubated. Esophageal Temperature monitoring with a CIRCA catheter formed. Esophageal deflection for hypothermia of the esophagus below 30 degrees C Left superior pulmonary vein Complete isolation, entrance block Left inferior pulmonary vein Complete isolation, entrance block Right superior pulmonary vein, during phrenic nerve pacing Complete isolation, entrance block Right inferior pulmonary vein, during phrenic nerve pacing Complete isolation, entrance block At the end of the procedure the Achieve catheter was once again used to check for entrance block Phrenic nerve stimulation was performed to confirm diaphragmatic stimulation the end of the procedure Cine fluoroscopy was performed at the very end of the procedure to confirm movement of both diaphragms with inspiration and expiration 3-D electro-anatomic mapping of the left atrium was performed. Coronary sinus was also mapped during one of the tachycardias with a eccentric activation was found to be late The pulmonary veins were completely isolated at an anterolateral level Irregular atrial tachycardia was noted of the cryoablation This appeared to be originating the septum because of the concentric activation First RF ablation just posterior to the fossa ovalis puncture site resulted in t ermination of atrial fibrillation organized physician the septal atrial tachycardia with concentric activation Ablation of the roof tachycardia, linear ablation along the LA roof Ablation of mitral reentry after proving this with entrainment mapping. Successful termination of mitral reentry Mechanical pump termination of the septal atrial tachycardia from the right atrium close to the approach to the AV node RF ablation applied here for a few seconds and resulted in DC prolongation from 140 ms to 190 ms. RF was immediately stopped and no further lesions applied here At the end of the procedure the patient was extubated Heparin was reversed Venous sheaths were removed and hemostasis assured Procedures performed ([facility]I - CRYO Ablation) Diagnostic EP study CS pacing and recording Left and right transseptal catheterization 3D mapping Intracardiac echocardiography Pulmonary vein isolation with transseptal and comprehensive EPS, [id number] Left atrial roof line, +[id number] Linear ablation, left atrium septum, +[id number] Linear ablation, left atrium, mitral isthmus Focal ablation RA septum in sinus rhythm This was a very long procedure that involved pulmonary vein isolation followed by ablation of multiple atrial tachycardias atrial reentry and 3-D electro- anatomic mapping of the right atrium twice, left atrium on multiple occasions and coronary sinus
--- NOTE | 2020-09-07 18:21 | P.PRLE ---
RE: Everett Miner Tawnya Dear Jf Everett Miner underwent in A. fib ablation First he underwent successful pulmonary vein isolation However thereafter he demonstrated multiple extrapulmonary foci, both focal tachycardias as well as atrial reentry His predominant sources are along the septum of the right and left atria Successful ablation was performed along the septum of the left atrium Reentry through the roof of the left atrium was also terminated successfully Reentry around the mitral isthmus was also successfully ablated At the end he was left with the right atrial tachycardia septal tachycardia On 2 occasions this tachycardia was terminated simply by mechanical pressure of the ablation catheter along the right atrial septum. Unfortunately this site is close to the AV node, just proximal to it These of the atrial approaches/atrial tissue that approach the AV node I try to ablate this site with low-power during sinus rhythm but within seconds there was mild prolongation of the MT interval and therefore had to stop line his residual MT interval at this time is about 180 ms which is still within normal range Ablation at this site of his final atrial tachycardia/atrial fibrillation source will definitely result in AV block and required a permanent pacemaker It will not be possible to ablate this evening via the noncoronary cusp of the aortic root since it is along the atrial approach to the AV node rather than close to the His bundle At this time symptoms. Metoprolol, continue xarelto and other cardiac medications and I will observe him for recurrent episodes of atrial fibrillation At that point I may attempt drug therapy at low doses Thank you for entrusting me with the care of the patient Warm regards Sincerely Tashi Ramirez
[2020-09-07] MEDS ORDERED: LOSARTAN 50 MG TAB PO STA (18:22)
[2020-09-07] MEDS: ACETAMINOPHEN IV (For NPO) 1,000 MG in EMPTY BAG 1 BAG IVPB ONE ×2 (18:43→18:59)
[2020-09-07] MEDS ORDERED: RIVAROXABAN 20 MG TAB PO SCH (20:00)
[2020-09-07 20:14] VITALS: RESP 18
[2020-09-07] MEDS: PANTOPRAZOLE 40 MG TABLET PO SCH (20:31)
[2020-09-07] MEDS ORDERED: allopurinoL 300 MG TAB PO SCH (21:00)
[2020-09-08] MEDS ORDERED: ATORVASTATIN 80 MG TAB PO SCH (09:00)
[2020-09-08] MEDS ORDERED: LOSARTAN 50 MG TAB PO SCH (09:00)
[2020-09-08] MEDS: PANTOPRAZOLE 40 MG TABLET PO SCH (09:57)
--- NOTE | 2020-09-08 11:46 | US ---
EXAMINATION TYPE: US lower ext pseudo artery RT DATE OF EXAM: 09/08/2020 COMPARISON: NONE CLINICAL HISTORY: Hematoma post procedure. EXAM PERFORMED: Grayscale and color Doppler duplex imaging performed of the groin, post cardiac omaira ter to assess for pseudoaneurysm. SIDE PERFORMED: Right Color and Waveform Doppler performed to assess for the presence of pseudoaneurysm; Is there ultrasound evidence of a pseudoaneurysm: no Is there evidence of AV shunting: no Anechoic structure medial to puncture measuring 4.5 x 1.5 x 1.3cm IMPRESSION: Hematoma without evidence for pseudoaneurysm at this time.
--- NOTE | 2020-09-08 15:27 | P.DS ---
Providers Attending physician: Tashi Ramirez Primary care physician: [facility] Course: Patient is doing well. No chest discomfort dizziness lightheadedness No sore throat Resting comfortably in bed Ambulating in the room He had some bleeding in the right groin venous access site and a FemoStop was applied at night He is a small hematoma. No bruit was audible over this Minimally tender Bruising over the thigh on the right side No JVD Breath sounds are clear no rhonchi no crackles Normal heart sounds no rub, S1 normal S2 Soft abdomen No lower extremity edema pulses are well palpable Impression Persistent atrial fibrillation refractory to therapy and symptomatic Symptomatic sick sinus syndrome exacerbated by beta ayo use Successful pulmonary vein isolation and cryoablation Induction of atrial fibrillation for/irregular atrial tachycardia thereafter Termination of atrial fibrillation with a single RF lesion in the septum of the left atrium just behind the fossa ovalis Is due, multiple atrial tachycardias Successful ablation of the roof reentrant tachycardia Successful ablation of mitral isthmus reentry A second focal atrial tachycardia noted on the septum on the right side close to the atrial approach to the AV node RF ablation for a few seconds and resulted in prolongation of OR interval 290 ms This morning his OR interval is 180 ms His baseline OR interval was 150 ms His AV node conduction is well preserved at this time No further ablation contemplated for this focal atrial tachycardia. This is unlikely to accessible from the noncoronary cusp of the aortic root Medical treatment may start with the PRN use of metoprolol only I asked him to stop metoprolol completely since he was getting very tired with 50 mg 3 times a day Ultrasound of the right groin confirmed absence of any pseudoaneurysm consistent with clinical evaluation Plan Stop metoprolol completely Continue all other cardiac medications including anticoagulation Discharge home Plan - Discharge Summary Discharge Rx Participant: No New Discharge Prescriptions: Discontinued Metoprolol Tartrate [Lopressor] 75 mg PO BID No Action Atorvastatin [Lipitor] 80 mg PO DAILY Pantoprazole [Protonix] 40 mg PO BID Rivaroxaban [Xarelto] 20 mg PO W/SUPPER tab allopurinoL [Zyloprim] 150 mg PO HS Cholecalciferol [Vitamin D3] 1,000 unit PO HS Losartan Potassium 50 mg PO DAILY Fexofenadine HCl 180 mg PO HS Citalopram Hydrobromide [Citalopram HBr] 40 mg PO DAILY Fenofibrate Nanocrystallized [Tricor] 145 mg PO HS Discharge Medication List Atorvastatin [Lipitor] 80 mg PO DAILY 02/20/16 [History] Pantoprazole [Protonix] 40 mg PO BID 02/20/16 [History] Rivaroxaban [Xarelto] 20 mg PO W/SUPPER tab 02/22/16 [Rx] allopurinoL [Zyloprim] 150 mg PO HS 12/13/16 [History] Cholecalciferol [Vitamin D3] 1,000 unit PO HS 05/25/18 [History] Fexofenadine HCl 180 mg PO HS 05/25/18 [History] Losartan Potassium 50 mg PO DAILY 05/25/18 [History] Citalopram Hydrobromide [Citalopram HBr] 40 mg PO DAILY 04/01/20 [History] Fenofibrate Nanocrystallized [Tricor] 145 mg PO HS 08/14/20 [History] Follow up Appointment(s)/Referral(s): Tashi Ramirez MD [STAFF PHYSICIAN] - 1 Week Activity/Diet/Wound Care/Special Instructions: Post EP study - Ablation instructions 1. Keep access sites dry for 2 days. 2. No heavy lifting or straining for 2 days. 3. Avoid bending the hips repeatedly for 2 days. 4. You may go up and down stairs slowly Call if the following is noted 1. Bleeding, increasing swelling or pain at the access sites. 2. Increasing chest discomfort, especially upon taking a deep breath. 3. Increasing shortness of breath, at rest or with exertion. 4. Undue cough / phlegm 5. Difficulty or pain while swallowing. 6. Pain or change in color in the extremities. 7. Fever, chills, rigors. 8. Increasing headache or neurologic symptoms. 9. Dizziness, fainting, palpitations Stop metoprolol Continue all other cardiac medications including xarelto Follow Dr. Patton within one week Discharge Disposition: HOME SELF-CARE
[2020-09-08] MEDS ORDERED: RIVAROXABAN 10 MG TAB PO SCH (17:30)
[2020-09-08 18:57] VITALS: BP 119/71; PULSE 87; TEMP 98.1
== END 2020-09-08 17:37 | disposition home or self-care (01) ==
LOC: CATHEP 10:42 → 3NCARDOBS 17:21 → CATHEP 09-08 17:37
PROVIDERS: ATTEND Internal Medicine Clinical Cardiac Electrophysiology
DX: I48.19 Other persistent atrial fibrillation (principal); R00.0 Tachycardia, unspecified; I10 Essential (primary) hypertension; G47.33 Obstructive sleep apnea (adult) (pediatric); E78.5 Hyperlipidemia, unspecified; K21.9 Gastro-esophageal reflux disease without esophagitis; M19.90 Unspecified osteoarthritis, unspecified site; M10.9 Gout, unspecified; F32.9 Major depressive disorder, single episode, unspecified; Z96.612 Presence of left artificial shoulder joint; Z96.653 Presence of artificial knee joint, bilateral; Z98.890 Other specified postprocedural states; F17.200 Nicotine dependence, unspecified, uncomplicated; I49.5 Sick sinus syndrome; Z79.01 Long term (current) use of anticoagulants; Z79.899 Other long term (current) drug therapy
CPT/HCPCS: 85347; 93662; 93613; 93656; 93657; 84132; 93975; 93926; C1769 ×4; C1894 ×2; C1730 ×2; C1759; C1893; C1733; C1766; J2250; J2720; J1644 ×3; J2710; J2001; J3010; J1170; J0131; J0330; J2704; Q9966

== ENCOUNTER → 2020-10-21 | Outpatient (CLI) | payer MEDICARE, OTHER ==
[2020-10-21 19:21] LABS: African American GFR (CKD) 43.5 (60.0-200.0); Albumin 4.3 g/dL (3.80-4.90); Albumin/Globulin Ratio 1.72 (1.60-3.17); Calcium 9.8 mg/dL (8.7-10.3); Globulin 2.5 g/dL (1.6-3.3); Non-African American GFR(CKD) 37.6 (60.0-200.0); Potassium 4.2 mmol/L (3.5-5.5); Total Bilirubin 0.5 mg/dL (0.2-1.2); Total Protein 6.8 g/dL (6.2-8.2)
== END | disposition home or self-care (01) ==
LOC: LABWHC1 13:17
PROVIDERS: ATTEND Nurse Practitioner Adult Health
DX: N18.9 Chronic kidney disease, unspecified (principal)
CPT/HCPCS: 36415; 80053

== ENCOUNTER 2020-11-05 06:03 | Day surgery (SDC) | payer MEDICARE, OTHER ==
[2020-11-03 14:17] VITALS: BMI 26.9
[~2020-11-05 06:03] MED LIST changes: -LACTATED RINGERS 1,000 ML IV SCH
[2020-11-05] MEDS ORDERED: SODIUM CHLORIDE 0.9% 500 ML 500 ML IV ONE (06:08)
[2020-11-05] MEDS ORDERED: PROPOFOL 10 MG/ML 20 ML VIAL IV ONE (07:11)
[2020-11-05] MEDS ORDERED: SODIUM CHLORIDE 0.9% 1,000 ML IV SCH (07:45)
[2020-11-05] MEDS ORDERED: SODIUM CHLORIDE 0.9% 1,000 ML IV ONE (07:56)
[2020-11-05] MEDS ORDERED: ATORVASTATIN 80 MG TAB PO SCH (09:00)
[2020-11-05 10:03] VITALS: PULSE 74; RESP 18
[2020-11-05 10:05] VITALS: BP 115/69
--- NOTE | 2020-11-05 10:32 | CE ---
CARDIAC ELECTROPHYSIOLOGY REPORT INDICATION: Atrial flutter. PROCEDURE: After explaining the procedure to the patient, its risks, and complication, his blood pressure, heart rate, O2 saturation was monitored. Sedation was obtained by the Anesthesia Department. Subsequently, a synchronized biphasic cardioversion using 200 joules was performed with yarsani of normal sinus rhythm. There was no immediate complication. BRUNILDA / JOLANTAN: [id number] /
[2020-11-05] MEDS ORDERED: RIVAROXABAN 10 MG TAB PO SCH (17:30)
[2020-11-05] MEDS ORDERED: PANTOPRAZOLE 40 MG TABLET PO SCH (17:30)
[2020-11-05] MEDS ORDERED: allopurinoL 300 MG TAB PO SCH (21:00)
[2020-11-05] MEDS ORDERED: NON FORMULARY DRUG (Fenofibrate Nanocrystallized [Tricor] 145 MG Tablet) PO SCH (21:00)
[2020-11-05] MEDS ORDERED: METOPROLOL TARTRATE 50 MG TAB PO SCH (21:00)
[2020-11-05] MEDS ORDERED: FEXOFENADINE HCL 180 MG PO SCH (21:00)
[2020-11-05] MEDS ORDERED: CHOLECALCIFEROL 1,000 UNIT TAB PO SCH (21:00)
[2020-11-06] MEDS ORDERED: LOSARTAN 50 MG TAB PO SCH (09:00)
[2020-11-06] MEDS ORDERED: CITALOPRAM HYDROBROMIDE 20 MG TAB PO SCH (09:00)
== END 2020-11-05 09:50 | disposition home or self-care (01) ==
LOC: CATHCVL 06:03
PROVIDERS: ATTEND Internal Medicine Interventional Cardiology
DX: I48.92 Unspecified atrial flutter (principal); I10 Essential (primary) hypertension; E78.2 Mixed hyperlipidemia; Z98.890 Other specified postprocedural states; Z87.891 Personal history of nicotine dependence; I48.0 Paroxysmal atrial fibrillation; Z79.01 Long term (current) use of anticoagulants; Z79.899 Other long term (current) drug therapy
CPT/HCPCS: 93005; 92960; J2704

== ENCOUNTER 2021-03-23 21:31 | Emergency (ER) | payer MEDICARE, OTHER ==
[2021-03-23 22:03] VITALS: RESP 18; TEMP 98
[2021-03-23 22:26] LABS: Basophils # (A) 0.1 k/uL (0-0.2); Basophils % (A) 1 %; Eosinophils # (A) 0.4 k/uL (0-0.7); Eosinophils % (A) 4 %; HCT 38.6 % (39.0-53.0); HGB 13.1 gm/dL (13.0-17.5); Lymphocytes # (A) 3.5 k/uL (1.0-4.8); Lymphocytes % (A) 30 %; MCH 30.4 pg (25.0-35.0); MCHC 34.1 g/dL (31.0-37.0); MCV 89.4 fL (80.0-100.0); Monocytes # (A) 0.6 k/uL (0-1.0); Monocytes % (A) 6 %; Neutrophils # (A) 6.9 k/uL (1.3-7.7); Neutrophils % (A) 59 %; Platelet Count 242 k/uL (150-450); RBC 4.32 m/uL (4.30-5.90); RDW 13.6 % (11.5-15.5); WBC 11.7 k/uL (3.8-10.6)
[2021-03-23 22:42] LABS: Calcium 9.7 mg/dL (8.4-10.2); Potassium 4.1 mmol/L (3.5-5.1)
[2021-03-23 22:45] LABS: INR 1.1 (<1.2); Prothrombin Time 11.4 sec (9.0-12.0)
[2021-03-23 23:57] VITALS: BP 115/71; PULSE 102
--- NOTE | 2021-03-24 00:37 | ED ---
Recheck HPI - General Chief Complaint: Recheck/Abnormal Lab/Rx Stated Complaint: Low BP Time Seen by Provider: 03/23/21 22:20 Source: patient, RN notes reviewed, old records reviewed Mode of arrival: wheelchair Limitations: no limitations - History of Present Illness Initial Comments: This is a 70-year-old male for recheck reevaluation, patient presents today for evaluation regards to oh low blood pressure. Patient admits to some nausea and not feeling well decreased appetite decreased oral intake. No fevers no abdominal pain no recent travel history or sick contacts. She has A. fib high blood pressure high cholesterol states he felt lightheaded weak and dizzy MD Complaint: other (Low blood pressure) -: unknown Initial Visit For: other (none) Returns Today for: other (Low blood pressure) Symptoms Since Prior Visit: no new symptoms (Patient was lightheaded and dizzy) Context: planned re-check (Patient presented based on symptoms) Associated Symptoms: malaise, nausea Treatments Prior to Arrival: other (none) - Related Data Home Medications Medication Instructions Recorded Confirmed Atorvastatin [Lipitor] 80 mg PO DAILY 02/20/16 11/05/20 Pantoprazole [Protonix] 40 mg PO BID 02/20/16 11/05/20 allopurinoL [Zyloprim] 150 mg PO HS 12/13/16 11/05/20 Cholecalciferol [Vitamin D3] 1,000 unit PO HS 05/25/18 11/05/20 Fexofenadine HCl 180 mg PO HS 05/25/18 11/05/20 Losartan Potassium 50 mg PO DAILY 05/25/18 11/05/20 Citalopram Hydrobromide 40 mg PO DAILY 04/01/20 11/05/20 [Citalopram HBr] Fenofibrate Nanocrystallized 145 mg PO HS 08/14/20 11/05/20 [Tricor] Rivaroxaban [Xarelto] 15 mg PO W/SUPPER 11/03/20 11/05/20 Metoprolol Tartrate [Lopressor] 50 mg PO BID 11/05/20 11/05/20 Allergies Allergy/AdvReac Type Severity Reaction Status Date / Time No Known Allergies Allergy Verified 11/05/20 06:14 Review of Systems ROS Statement: Those systems with pertinent positive or pertinent negative responses have been documented in the HPI. ROS Other: All systems not noted in ROS Statement are negative. Past Medical History Past Medical History: Atrial Fibrillation, GERD/Reflux, Hyperlipidemia, Hypertension, Osteoarthritis (OA) Additional Past Medical History / Comment(s): SOB, Hx GOUT History of Any Multi-Drug Resistant Organisms: None Reported Past Surgical History: Appendectomy, Cardiac Ablation, Joint Replacement, Orthopedic Surgery Additional Past Surgical History / Comment(s): cardioversion,TOTAL LEFT SHOULDER,ZANDRA KNEE replacement RIGHT X2 AND LEFT X1. PICC LINE INSERTION AND LATER REMOVED Past Anesthesia/Blood Transfusion Reactions: No Reported Reaction Additional Past Anesthesia/Blood Transfusion Reaction / Comment(s): no hx blood transfusion Past Psychological History: Anxiety, Depression Smoking Status: Former smoker - Past Family History Son(s) Family Medical History: No Reported History Mother Family Medical History: No Reported History General Exam Limitations: no limitations General appearance: alert, in no apparent distress Head exam: Present: atraumatic, normocephalic, normal inspection Eye exam: Present: normal appearance, PERRL, EOMI. Absent: scleral icterus, conjunctival injection, periorbital swelling ENT exam: Present: normal exam, mucous membranes moist Neck exam: Present: normal inspection. Absent: tenderness, meningismus, lymphadenopathy Respiratory exam: Present: normal lung sounds bilaterally. Absent: respiratory distress, wheezes, rales, rhonchi, stridor Cardiovascular Exam: Present: regular rate, normal rhythm, normal heart sounds. Absent: systolic murmur, diastolic murmur, rubs, gallop, clicks GI/Abdominal exam: Present: soft, normal bowel sounds. Absent: distended, tenderness, guarding, rebound, rigid Extremities exam: Present: normal inspection, full ROM, normal capillary refill. Absent: tenderness, pedal edema, joint swelling, calf tenderness Back exam: Present: normal inspection Neurological exam: Present: alert, oriented X3, CN II-XII intact Psychiatric exam: Present: normal affect, normal mood Skin exam: Present: warm, dry, intact, normal color. Absent: rash Course Vital Signs 03/23/21 03/23/21 22:00 23:56 Temperature 98.0 F Pulse Rate 107 H 102 H Respiratory 18 18 Rate Blood Pressure 92/58 115/71 O2 Sat by Pulse 97 99 Oximetry - Reevaluation(s) Reevaluation #1: 03/24/21 00:36 Medical record is reviewed Reevaluation #2: 04/28/21 00:36 Patient feels better after drinking significant amount of fluid here in the emergency department. Patient preferring discharge home Reevaluation #3: 03/24/21 00:36 Spoke patient regarding findings here in the ER, patient is aware, Medical Decision Making - Medical Decision Making 70 male DF for significant dehydration acute kidney injury. Patient given hydration here in the ER orally. Tolerating oral intake and can be discharged home - Lab Data Result diagrams: 03/23/21 22:15 03/23/21 22:15 Lab Results 03/23/21 03/23/21 03/23/21 Range/Units 22:15 22:15 22:15 WBC 11.7 H (3.8-10.6) k/uL RBC 4.32 (4.30-5.90) m/uL Hgb 13.1 (13.0-17.5) gm/dL Hct 38.6 L (39.0-53.0) % MCV 89.4 (80.0-100.0) fL MCH 30.4 (25.0-35.0) pg MCHC 34.1 (31.0-37.0) g/dL RDW 13.6 (11.5-15.5) % Plt Count 242 (150-450) k/uL MPV 7.0 Neutrophils % 59 % Lymphocytes % 30 % Monocytes % 6 % Eosinophils % 4 % Basophils % 1 % Neutrophils # 6.9 (1.3-7.7) k/uL Lymphocytes # 3.5 (1.0-4.8) k/uL Monocytes # 0.6 (0-1.0) k/uL Eosinophils # 0.4 (0-0.7) k/uL Basophils # 0.1 (0-0.2) k/uL PT 11.4 (9.0-12.0) sec INR 1.1 (<1.2) Sodium 135 L (137-145) mmol/L Potassium 4.1 (3.5-5.1) mmol/L Chloride 105 (98-107) mmol/L Carbon Dioxide 18 L (22-30) mmol/L Anion Gap 12 mmol/L BUN 34 H (9-20) mg/dL Creatinine 3.25 H (0.66-1.25) mg/dL Est GFR (CKD-EPI)AfAm 21 (>60 ml/min/1.73 sqM) Est GFR (CKD-EPI)NonAf 18 (>60 ml/min/1.73 sqM) Glucose 109 H (74-99) mg/dL Plasma Lactic Acid David (0.7-2.0) mmol/L Calcium 9.7 (8.4-10.2) mg/dL Troponin I (0.000-0.034) ng/mL 03/23/21 03/23/21 Range/Units 22:15 22:15 WBC (3.8-10.6) k/uL RBC (4.30-5.90) m/uL Hgb (13.0-17.5) gm/dL Hct (39.0-53.0) % MCV (80.0-100.0) fL MCH (25.0-35.0) pg MCHC (31.0-37.0) g/dL RDW (11.5-15.5) % Plt Count (150-450) k/uL MPV Neutrophils % % Lymphocytes % % Monocytes % % Eosinophils % % Basophils % % Neutrophils # (1.3-7.7) k/uL Lymphocytes # (1.0-4.8) k/uL Monocytes # (0-1.0) k/uL Eosinophils # (0-0.7) k/uL Basophils # (0-0.2) k/uL PT (9.0-12.0) sec INR (<1.2) Sodium (137-145) mmol/L Potassium (3.5-5.1) mmol/L Chloride (98-107) mmol/L Carbon Dioxide (22-30) mmol/L Anion Gap mmol/L BUN (9-20) mg/dL Creatinine (0.66-1.25) mg/dL Est GFR (CKD-EPI)AfAm (>60 ml/min/1.73 sqM) Est GFR (CKD-EPI)NonAf (>60 ml/min/1.73 sqM) Glucose (74-99) mg/dL Plasma Lactic Acid David 1.6 (0.7-2.0) mmol/L Calcium (8.4-10.2) mg/dL Troponin I <0.012 (0.000-0.034) ng/mL Disposition Clinical Impression: Dehydration, BERKLEY (acute kidney injury), Hypotension Disposition: HOME SELF-CARE Instructions (If sedation given, give patient instructions): Dehydration (ED), Acute Kidney Injury (DC) Is patient prescribed a controlled substance at d/c from ED?: No Referrals: Jf Reddy DO [Primary Care Provider] - 1-2 days
== END 2021-03-23 23:55 | disposition home or self-care (01) ==
LOC: EC 21:31
DX: I95.9 Hypotension, unspecified (principal); N17.9 Acute kidney failure, unspecified; I48.91 Unspecified atrial fibrillation; E78.00 Pure hypercholesterolemia, unspecified; E78.5 Hyperlipidemia, unspecified; M19.90 Unspecified osteoarthritis, unspecified site; K21.9 Gastro-esophageal reflux disease without esophagitis; I10 Essential (primary) hypertension; F32.9 Major depressive disorder, single episode, unspecified; M10.9 Gout, unspecified; Z87.891 Personal history of nicotine dependence; Z96.653 Presence of artificial knee joint, bilateral
CPT/HCPCS: 80048; 83605; 84484; 85025; 85610; 93005; 99284

== ENCOUNTER → 2021-04-13 | Outpatient (CLI) | payer MEDICARE, OTHER ==
[2021-04-13 09:59] LABS: HCT 39.9 % (39.0-53.0); HGB 13.1 gm/dL (13.0-17.5); MCH 29.8 pg (25.0-35.0); MCHC 32.9 g/dL (31.0-37.0); MCV 90.6 fL (80.0-100.0); Mean Platelet Volume 7.1; Platelet Count 245 k/uL (150-450); RBC 4.41 m/uL (4.30-5.90); WBC 7.8 k/uL (3.8-10.6)
[2021-04-13 10:14] LABS: Potassium 4.3 mmol/L (3.5-5.1)
== END | disposition home or self-care (01) ==
LOC: LABPAT 09:12
PROVIDERS: ATTEND Internal Medicine Clinical Cardiac Electrophysiology
DX: Z01.812 Encounter for preprocedural laboratory examination (principal)
CPT/HCPCS: 36415; 80051; 82565; 84520; 85027

== ENCOUNTER 2021-04-22 11:53 | Day surgery (SDC) | payer MEDICARE, OTHER ==
[2021-04-20 14:38] VITALS: BMI 27.9
[~2021-04-22 11:53] MED LIST changes: +LACTATED RINGERS 1,000 ML IV SCH
[2021-04-22] MEDS ORDERED: SODIUM CHLORIDE 0.9% 1,000 ML IV ONE (12:56)
[2021-04-22] MEDS ORDERED: ROCURONIUM 10 MG/ML (5 ML VIAL) IV ONE (15:20)
[2021-04-22] MEDS ORDERED: PROTAMINE SULFATE 10 MG/ML 5 ML VIAL IV ONE (15:20)
[2021-04-22] MEDS ORDERED: SUCCINYLCHOLINE CHLORIDE 100 MG/5 ML SYR IV ONE (15:20)
[2021-04-22] MEDS ORDERED: MIDAZOLAM 2 MG/2 ML VIAL ONE (15:20)
[2021-04-22] MEDS ORDERED: PROPOFOL 10 MG/ML 20 ML VIAL IV ONE (15:20)
[2021-04-22] MEDS ORDERED: PHENYLEPHRINE-0.9% NACL SYG 1,000 MCG/10 ML SYRINGE ONE (15:20)
[2021-04-22] MEDS ORDERED: HEPARIN SODIUM,PORCINE 10,000 UNIT/ML 1 ML VIAL ONE (15:20)
[2021-04-22] MEDS ORDERED: ISOPROTERENOL 250 MCG/1.25 ML SYR IV ONE (15:20)
[2021-04-22] MEDS ORDERED: fentaNYL (PF) 50 MCG/ML 2 ML AMP ONE (15:20)
[2021-04-22] MEDS ORDERED: LIDOCAINE 1% INJ 10MG/ML (20 ML MDV) ONE (15:45)
[2021-04-22] MEDS ORDERED: LIDOCAINE 1% INJ 10MG/ML (20 ML MDV) SQ ONE (16:02)
[2021-04-22] MEDS ORDERED: HEPARIN SOD,PORK IN 0.45% NACL 25,000 UNIT in 0.45% NACL 1 250ML.BAG IV ONE (16:03)
[2021-04-22] MEDS ORDERED: HEPARIN SODIUM (1,000 UNIT/ML) 1,000 UNIT in SODIUM CHLORIDE 0.9% 1,000 ML IRRIGATION ONE (16:04)
[2021-04-22] MEDS ORDERED: LACTATED RINGERS 1,000 ML IV ONE (18:00)
[2021-04-22] MEDS ORDERED: HYDROcodone/APAP 5-325MG 1 EACH TAB PO PRN (18:55)
[2021-04-22] MEDS ORDERED: ACETAMINOPHEN TAB 325 MG TAB PO PRN (18:55)
--- NOTE | 2021-04-22 19:16 | P.EPPROC ---
- EP Procedure Note Electrophysiology Procedure Note: Diagnosis Persistent atrial tachycardia following prior A. fib ablation Result Small In the lateral aspect of the roof line resulting in the roof reentry in the left atrium Successful termination and jewish of sinus rhythm with RF lesion in this Linear ablation along the prior mitral isthmus RF line No other inducible arrhythmias on and off Isuprel Details Patient was brought to the EP lab in a fasting state. Written informed consent was obtained prior to the procedure. The patient was in tachycardia at the start of the study Tachycardia cycle length of about 280 ms, brought T-wave with a delayed upright in V1 Venous sheaths were placed in the right left femoral veins intracardiac echocardiography did not reveal any left atrial appendage thrombus Pentaray catheter placed in the right atrium 3-D electro anatomic activation mapping performed Pentaray catheter placed in the coronary sinus and 3-D electro-anatomic mapping performed Transseptal catheterization performed RA pressures 15/8/12 LA pressure is 27/3/17 3-D electro-anatomic mapping, activation mapping of the left atrium Scar mapping performed There is a gap in the lateral aspect of the prior to flying and a reentry involving being the left atrial roof with reentry around the left pulmonary veins RF ablation at the site resulted in termination of the tachycardia and resumption of sinus rhythm This line was then interrogated with high output pacing Complete line was made in this small Following that M anatomic scar mapping showed viability in the mitral isthmus line as had been previously made Linear RF ablation was performed We'll contact force of between 12-20 mg Follow-up to 35-40 W Non-capture demonstrated along this line endocardially However bidirectional block occurred only transiently despite RF ablations This appeared to be a deep/thick myocardial tissue and the mid mitral isthmus se em to be conducting through RF ablation catheter placed in the coronary sinus The distance between the Ming sinus and the endocardium of the mitral isthmus area was about 1 cm RF ablation within the coronary sinus performed along the epicardial aspect of the mitral isthmus line A detailed EP study was performed with burst stimulation next stimulation No arrhythmias induced High-dose Isuprel was used no arrhythmias induced At the end of the procedure there was no evidence for pericardial effusion Normal LV function noted normal RV function noted Sinus cycle length 958 ms, VT interval 185 ms, QRS 103 ms and QT 406 ms AH 82 ms and HV interval 46 ms
--- NOTE | 2021-04-22 19:18 | P.PRLE ---
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 Patton as before Thank you for entrusting me with the care of the patient Warm regards Sincerely Tashi Ramirez
[2021-04-22] MEDS: ACETAMINOPHEN IV (For NPO) 1,000 MG in EMPTY BAG 1 BAG IVPB ONE ×2 (19:35→19:50)
[2021-04-22] MEDS ORDERED: RIVAROXABAN 20 MG TAB PO SCH (21:45)
[2021-04-22] MEDS: METOPROLOL TARTRATE 50 MG TAB PO SCH (22:19)
[2021-04-22] MEDS: ATORVASTATIN 80 MG TAB PO SCH (22:20)
[2021-04-22] MEDS: PANTOPRAZOLE 40 MG TABLET PO SCH (22:20)
[2021-04-22 23:20] VITALS: RESP 16
[2021-04-23 07:58] VITALS: BP 116/76; PULSE 69; TEMP 97.9
[2021-04-23] MEDS: METOPROLOL TARTRATE 50 MG TAB PO SCH (08:41)
[2021-04-23] MEDS: PANTOPRAZOLE 40 MG TABLET PO SCH (08:42)
[2021-04-23] MEDS: ATORVASTATIN 80 MG TAB PO SCH (08:42)
[2021-04-23] MEDS ORDERED: CITALOPRAM HYDROBROMIDE 20 MG TAB PO SCH (09:00)
[2021-04-23] MEDS ORDERED: ATORVASTATIN 80 MG TAB PO SCH (09:00)
[2021-04-23] MEDS ORDERED: LOSARTAN 50 MG TAB PO SCH (09:00)
--- NOTE | 2021-04-23 12:16 | P.DS ---
Providers Attending physician: Tashi Ramirez Primary care physician: [facility] Course: Patient is resting comfortably in bed No chest discomfort no dizziness lightheadedness or palpitations His groins of healed well, no hematoma no swelling no tenderness On examination Afebrile 97.9F, pulse rate in the 60s and 70s Twelve-lead EKG is normal Blood pressure 116/76. 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 Plan Continue xarelto 15 g by mouth daily Continue all cardiac medications unchanged Follow-up with Dr. Dr. Patton in 2 weeks Patient go home today Plan - Discharge Summary Discharge Rx Participant: No New Discharge Prescriptions: Continue Atorvastatin [Lipitor] 80 mg PO DAILY Pantoprazole [Protonix] 40 mg PO BID allopurinoL [Zyloprim] 150 mg PO HS Cholecalciferol [Vitamin D3 (25 Mcg = 1000 Iu)] 1,000 unit PO HS Losartan Potassium 50 mg PO DAILY Fexofenadine HCl 180 mg PO HS Citalopram Hydrobromide [Citalopram HBr] 40 mg PO DAILY Fenofibrate Nanocrystallized [Tricor] 145 mg PO HS Rivaroxaban [Xarelto] 15 mg PO W/SUPPER Metoprolol Tartrate [Lopressor] 50 mg PO BID Discharge Medication List Atorvastatin [Lipitor] 80 mg PO DAILY 02/20/16 [History] Pantoprazole [Protonix] 40 mg PO BID 02/20/16 [History] allopurinoL [Zyloprim] 150 mg PO HS 12/13/16 [History] Cholecalciferol [Vitamin D3 (25 Mcg = 1000 Iu)] 1,000 unit PO HS 05/25/18 [History] Fexofenadine HCl 180 mg PO HS 05/25/18 [History] Losartan Potassium 50 mg PO DAILY 05/25/18 [History] Citalopram Hydrobromide [Citalopram HBr] 40 mg PO DAILY 04/01/20 [History] Fenofibrate Nanocrystallized [Tricor] 145 mg PO HS 08/14/20 [History] Rivaroxaban [Xarelto] 15 mg PO W/SUPPER 11/03/20 [History] Metoprolol Tartrate [Lopressor] 50 mg PO BID 11/05/20 [History] Follow up Appointment(s)/Referral(s): Jaiden Patton MD [STAFF PHYSICIAN] - 10 Days Activity/Diet/Wound Care/Special Instructions: Post EP study - Ablation instructions 1. Keep access sites dry for 2 days. 2. No heavy lifting or straining for 2 days. 3. Avoid bending the hips repeatedly for 2 days. 4. You may go up and down stairs slowly Call if the following is noted 1. Bleeding, increasing swelling or pain at the access sites. 2. Increasing chest discomfort, especially upon taking a deep breath. 3. Increasing shortness of breath, at rest or with exertion. 4. Undue cough / phlegm 5. Difficulty or pain while swallowing. 6. Pain or change in color in the extremities. 7. Fever, chills, rigors. 8. Increasing headache or neurologic symptoms. 9. Dizziness, fainting, palpitations Continue Xarelto Discharge Disposition: HOME SELF-CARE
[2021-04-23] MEDS ORDERED: RIVAROXABAN 20 MG TAB PO SCH (21:00)
== END 2021-04-23 14:17 | disposition home or self-care (01) ==
LOC: CATHEP 11:53 → 6NMEDSUR 19:03 → CATHEP 04-23 14:17
PROVIDERS: ATTEND Internal Medicine Clinical Cardiac Electrophysiology
DX: I48.0 Paroxysmal atrial fibrillation (principal); E78.5 Hyperlipidemia, unspecified; I10 Essential (primary) hypertension; F17.210 Nicotine dependence, cigarettes, uncomplicated; I47.1 Supraventricular tachycardia; M19.90 Unspecified osteoarthritis, unspecified site; K21.9 Gastro-esophageal reflux disease without esophagitis; Z79.01 Long term (current) use of anticoagulants; Z79.899 Other long term (current) drug therapy
CPT/HCPCS: 93623; 93662; 93613; 93653; 87635; C1894 ×2; C1769 ×3; C1730; C1731; C1759; C1893; C1732; J2250; J2720; J1644 ×3; J2001; J3010; J0131; J2370; J0330; J2704

== ENCOUNTER → 2022-04-21 | Outpatient (CLI) | payer MEDICARE, OTHER ==
[2022-04-21 23:01] LABS: African American GFR (CKD) 58.2 (60.0-200.0); Albumin 4.5 g/dL (3.8-4.9); Albumin/Globulin Ratio 1.61 (1.60-3.17); Anion Gap 12.5 mmol/L (10.00-18.00); BUN/Creat Ratio 11.79 Ratio (12.00-20.00); Blood Urea Nitrogen 16.5 mg/dL (9.0-27.0); Carbon Dioxide 22.5 mmol/L (20.0-27.5); Globulin 2.8 g/dL (1.6-3.3); Non-African American GFR(CKD) 50.2 (60.0-200.0); Potassium 4.5 mmol/L (3.5-5.5); Total Bilirubin 0.6 mg/dL (0.30-1.20); Total Protein 7.3 g/dL (6.2-8.2)
[2022-04-21 23:30] LABS: HGB 12.2 g/dL (13.0-17.0); MCH 28.6 pg (27.0-32.0); MCHC 31.3 g/dL (32.0-37.0); MCV 91.5 fL (80.0-97.0); Mean Platelet Volume 10.7 fL (9.5-12.2); NRBC Per 100 WBC 0 /100 WBCS (0.0-0.0); Platelet Count 272 X 10*3/uL (140-440); RBC 4.26 X 10*6/uL (4.40-5.60); RDW 15.9 % (11.5-14.5); WBC 8.15 X 10*3/uL (4.50-10.00)
== END | disposition home or self-care (01) ==
LOC: LABWHC1 17:23
PROVIDERS: ATTEND Internal Medicine Interventional Cardiology
DX: I48.19 Other persistent atrial fibrillation (principal)
CPT/HCPCS: 36415; 80053; 85027

== ENCOUNTER 2022-05-04 09:49 | Day surgery (SDC) | payer MEDICARE, OTHER ==
[2022-05-03 12:27] VITALS: BMI 30.1
[~2022-05-04 09:49] MED LIST changes: +ALPRAZolam 0.25 MG TAB PO PRN; +ALPRAZolam 0.5 MG TAB PO PRN; +ASPIRIN 325 MG TAB PO STA; +ATORVASTATIN 80 MG TAB PO STA; +HEPARIN SODIUM,PORCINE 10,000 UNIT in SODIUM CHLORIDE 0.9% 1,000 ML IRRIGATION PRN; +HEPARIN SODIUM,PORCINE 2,500 UNIT in SODIUM CHLORIDE 0.9% 250 ML IRRIGATION PRN; -LACTATED RINGERS 1,000 ML IV SCH; +NITROGLYCERIN SL TABS 0.4 MG TAB SUBLINGUAL PRN; -SODIUM CHLORIDE 0.9% 1,000 ML IV SCH; +SODIUM CHLORIDE 0.9% 1,000 ML in EMPTY BAG 1 BAG IV ONE
[2022-05-04 10:43] VITALS: TEMP 97.1
[2022-05-04] MEDS ORDERED: fentaNYL (PF) 50 MCG/ML 2 ML AMP ONE (12:09)
[2022-05-04] MEDS ORDERED: HEPARIN SODIUM 1,000 UN/ML (10ML VL) ONE (12:12)
[2022-05-04] MEDS ORDERED: VERAPAMIL 2.5 MG/ML 2 ML AMP ONE (12:14)
[2022-05-04] MEDS ORDERED: MIDAZOLAM 2 MG/2 ML VIAL IV ONE (12:16)
[2022-05-04] MEDS ORDERED: fentaNYL (PF) 50 MCG/ML 2 ML AMP IV ONE (12:16)
[2022-05-04] MEDS ORDERED: LIDOCAINE 1% PF 10 MG/ML (5 ML AMP) SQ ONE ×2 (12:18→12:19)
[2022-05-04] MEDS ORDERED: VERAPAMIL SYRINGE (5 MG/10 ML) INTRAARTER ONE (12:22)
[2022-05-04] MEDS ORDERED: HEPARIN SODIUM 1,000 UN/ML (10ML VL) IV ONE (12:24)
[2022-05-04] MEDS ORDERED: IOPAMIDOL-370 125ML BTL INJ ONE (12:27)
[2022-05-04] MEDS ORDERED: RX INFO: IV CONTRAST WAS GIVEN 1 EACH MISC MISCELLANE PRN (12:37)
[2022-05-04] MEDS ORDERED: SODIUM CHLORIDE 0.9% 1,000 ML IV SCH (12:45)
--- NOTE | 2022-05-04 12:49 | P.CARDCATH ---
Date of Procedure: 05/04/22 Description of Procedure: Cardiac Catheterization: The patient is a 71-year-old male with known history of hypertension, hyperlipidemia who has been complaining of progressive dyspnea on exertion. He had an abnormal MPI. Recommendations were made regarding cardiac catheterization, the risks and the complications were discussed with the patient who is in full understanding and agreement. 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 Using Xylocaine Anesthesia and Seldinger technique, a 6-Greenlandic sheath was introduced in the right radial artery . Subsequently, selective coronary angiography performed using a 5-Greenlandic 3.5 bend Martin catheter. Multiple views of the coronary artery including hemiaxial views were obtained. The 5-Greenlandic pigtail catheter was used to cross the aortic valve and depending was calculated. Following that, catheter and sheath were removed. Hemostasis was obtained with deployment of TR band . There was no immediate complication. Patient was returned to room in stable condition. Of note, the patient received a total of 5000 units of intravenous heparin as well as intra-arterial verapamil. There was no immediate complications. Findings: Left main: This is a short sized vessel, bifurcating into left circumflex and LAD, left main has no evidence of high-grade stenosis LAD: This is a large size vessel, reaching to the apex, giving rise to a moderately sized diagonal branch. LAD has no evidence of high-grade stenosis Left circumflex: This is a dominant vessel, bifurcating distally into PDA and PLV. Giving rise to a moderately sized obtuse marginal branch in the mid segment. The left circumflex has no evidence of obstructive disease RCA: This is a nondominant small-sized vessel that has no evidence of obstructive disease [Left] Ventriculogram: Was not performed Hemodynamics: There was no gradient across the aortic valve, LVEDP 14-16 to mercury Conclusion: 1. No evidence of obstructive coronary disease 2. Left dominance Recommendations: I have recommended to continue present therapy. I see no evidence of obstructive disease or elevated LVEDP to explain his symptoms. The findings and recommendations were discussed with the patient and his family. They are in full understanding and agreement. Duration of sedation is 12 minutes.
[2022-05-04 16:05] VITALS: BP 123/62; PULSE 68; RESP 14
[2022-05-04] MEDS ORDERED: METOPROLOL TARTRATE 50 MG TAB PO SCH (21:00)
[2022-05-04] MEDS ORDERED: NON FORMULARY DRUG (Fenofibrate Nanocrystallized [Tricor] 145 MG Tablet) PO SCH (21:00)
[2022-05-04] MEDS ORDERED: FLECAINIDE 50 MG TAB PO SCH (21:00)
[2022-05-04] MEDS ORDERED: PANTOPRAZOLE 40 MG TABLET PO SCH (21:00)
[2022-05-04] MEDS ORDERED: allopurinoL 300 MG TAB PO SCH (21:00)
[2022-05-04] MEDS ORDERED: ATORVASTATIN 80 MG TAB PO SCH (21:00)
[2022-05-05] MEDS ORDERED: NON FORMULARY DRUG (Losartan Potassium [Losartan Potassium] 100 MG Tablet) PO SCH (09:00)
[2022-05-05] MEDS ORDERED: NON FORMULARY DRUG (Citalopram Hydrobromide [Citalopram Hbr] 40 MG Tablet) PO SCH (09:00)
== END 2022-05-04 16:40 | disposition home or self-care (01) ==
LOC: CATHCVL 09:49
PROVIDERS: ATTEND Internal Medicine Interventional Cardiology
DX: R94.39 Abnormal result of other cardiovascular function study (principal); R06.00 Dyspnea, unspecified; I48.19 Other persistent atrial fibrillation; I47.1 Supraventricular tachycardia; I12.9 Hypertensive chronic kidney disease with stage 1 through stage 4 chronic kidney disease, or unspecified chronic kidney disease; N18.9 Chronic kidney disease, unspecified; E78.2 Mixed hyperlipidemia; G47.33 Obstructive sleep apnea (adult) (pediatric); Q21.1 Atrial septal defect; M19.90 Unspecified osteoarthritis, unspecified site; Z20.822 Contact with and (suspected) exposure to COVID-19; Z87.891 Personal history of nicotine dependence; Z79.01 Long term (current) use of anticoagulants; Z79.899 Other long term (current) drug therapy; Z91.09 Other allergy status, other than to drugs and biological substances
CPT/HCPCS: 93458; 87635; C1894; C1769; J2250; J2001; J3010; J1644; Q9967

== ENCOUNTER → 2022-06-13 | Outpatient (CLI) | payer MEDICARE, OTHER ==
--- NOTE | 2022-06-14 07:11 | US ---
EXAMINATION TYPE: US kidneys/renal and bladder DATE OF EXAM: 06/13/2022 COMPARISON: 08/27/2020 CLINICAL HISTORY: D64.9 ANEMIA, N18.31 CKD STAGE 3. CKD 3 EXAM MEASUREMENTS: Right Kidney: 10.8 x 5.5 x 4.3 cm Left Kidney: 11.1 x 4.5 x 3.9 cm Right Kidney: No hydronephrosis or masses seen Left Kidney: No hydronephrosis or masses seen Bladder: Anechoic Bilateral Jets seen: no There is no evidence for hydronephrosis at this point in time. No nephrolithiasis is seen. No enrique s are identified. The urinary bladder is anechoic. IMPRESSION: No acute process.
== END | disposition home or self-care (01) ==
LOC: RADUSWWP 16:18
PROVIDERS: ATTEND Family Medicine
DX: I12.9 Hypertensive chronic kidney disease with stage 1 through stage 4 chronic kidney disease, or unspecified chronic kidney disease (principal); N18.31 Chronic kidney disease, stage 3a; D64.9 Anemia, unspecified
CPT/HCPCS: 76770

== ENCOUNTER → 2022-11-29 | Outpatient (CLI) | payer MEDICARE, OTHER ==
--- NOTE | 2022-11-29 10:11 | US ---
EXAMINATION TYPE: US liver DATE OF EXAM: 11/29/2022 COMPARISON: Renal US 2021, Aorta US 2019 CLINICAL HISTORY: K76.89 other disease of liver. Other disease of liver. Hx appendectomy. Patient sta samantha they saw a "liver cyst" on echocardiogram. TECHNIQUE: Multiple sonographic images of the right upper quadrant are obtained. FINDINGS: EXAM MEASUREMENTS: Liver Length: 14.6 cm Gallbladder Wall: 0.26 cm CBD: Obscured Right Kidney: 9.6 x 5.1 x 4.9 cm APPLE PACKING HEADER NOTES: Limited due to gas. Pancreas: Not well seen. Liver: Isoechoic area with hypoechoic borders seen within the liver near the hepatic veins: 5.4 x 5 .5 x 5.8 cm. Increased echogenicity of the liver with coarse echotexture. Gallbladder: Slightly limited due to gas Evidence for sonographic Coker's sign: No CBD: Obscured Right Kidney: No hydronephrosis or masses seen IMPRESSION: Indeterminate liver mass near the devonte hepatis measuring up to 5.8 cm. Further evaluation with MRI l iver mass protocol with and without IV contrast is recommended for complete evaluation.
== END | disposition home or self-care (01) ==
LOC: RADUSWWP 09:27
PROVIDERS: ATTEND Internal Medicine Interventional Cardiology
DX: K76.89 Other specified diseases of liver (principal)
CPT/HCPCS: 76705

== ENCOUNTER → 2023-08-16 | Outpatient (CLI) | payer MEDICARE ==
--- NOTE | 2023-08-16 12:56 | CT ---
EXAMINATION TYPE: CT soft tissue neck wo con DATE OF EXAM: 08/16/2023 HISTORY: left side neck discomfort, trouble swallowing x6 months COMPARISON: None available. CT DLP: 777 mGycm. Automated Exposure Control for Dose Reduction was Utilized. TECHNIQUE: CT scan of the neck is without contrast, axial images are obtained, coronal and sagittal reformatted images are reviewed. FINDINGS: Please note that this evaluation is limited due to the lack of intravenous contrast. Airway: No gross abnormality seen. Parotid/submandibular glands: No gross abnormality seen. Carotid/Vascular Structures: Vascular calcification is seen throughout the carotid arteries bilateral ly which is moderate in the carotid bulbs. The evaluation of the lumen is unable to be obtained due t o the lack of intravenous contrast. Osseous Structures: There are moderate to significant multilevel degenerative disc changes and large anterior osteophytes seen throughout the spine. There are no acute osseous abnormalities. Other: There is some mild chronic changes at the lung apices with some areas of scarring. There is no focal area of consolidation. IMPRESSION: 1. No definitive mass seen within the soft tissues of the neck with limitations due to the lack of in travenous contrast. 2. Significant degenerative changes throughout the spine. 3. No acute findings otherwise seen.
== END | disposition home or self-care (01) ==
LOC: RADCTMAIN 11:26
PROVIDERS: ATTEND Family Medicine
DX: M47.819 Spondylosis without myelopathy or radiculopathy, site unspecified (principal); R22.1 Localized swelling, mass and lump, neck; R13.10 Dysphagia, unspecified
CPT/HCPCS: 70490

== ENCOUNTER 2023-09-27 14:25 | Emergency (ER) | payer MEDICARE ==
--- NOTE | 2023-09-27 14:40 | ED ---
URI HPI - General Source: patient, RN notes reviewed Mode of arrival: ambulatory Limitations: no limitations - History of Present Illness MD Complaint: cough, nasal congestion <Christianne Antoine - Last Filed: 09/27/23 14:36> <Barrera Adams - Last Filed: 09/27/23 19:07> - General Chief Complaint: Upper Respiratory Infection Stated Complaint: Cough Time Seen by Provider: 09/27/23 14:26 - History of Present Illness Initial Comments: This is a 72 year old male who presents to the emergency department for coughing and congestion for 2 weeks. He has been on a z-farzana with no relief and wants to make sure that he is not getting pneumonia. Denies any chest pain. (Christianne Antoine) A 72-year-old male with no significant past medical history presented to the ED with a chief complaint of cough. Patient states for the past 2 weeks has had cough and congestion that "just will go away". For this, patient states that he saw his PCP who provided him a Medrol Dosepak, azithromycin, doxycycline, and inhaler. Despite this, reports continuous symptoms. Patient states that he is concerned that he is developing pneumonia however also admits that his symptoms have remained consistent and not worsening in nature. Denies fever or chills. No chest pain or shortness of breath. No other complaints. (Barrera Adams) - Related Data Home Medications Medication Instructions Recorded Confirmed Atorvastatin [Lipitor] 80 mg PO HS 02/20/16 05/04/22 Pantoprazole [Protonix] 40 mg PO BID 02/20/16 05/04/22 allopurinoL [Zyloprim] 300 mg PO HS 12/13/16 05/04/22 Cholecalciferol [Vitamin D3 (25 1,000 unit PO HS 05/25/18 05/04/22 Mcg = 1000 Iu)] Fexofenadine HCl 180 mg PO HS 05/25/18 05/04/22 Losartan Potassium 50 mg PO DAILY 05/25/18 05/04/22 Citalopram Hydrobromide 40 mg PO DAILY 04/01/20 05/04/22 [Citalopram HBr] Fenofibrate Nanocrystallized 145 mg PO HS 08/14/20 05/04/22 [Tricor] Rivaroxaban [Xarelto] 15 mg PO W/SUPPER 11/03/20 05/03/22 Metoprolol Tartrate [Lopressor] 50 mg PO BID 11/05/20 05/04/22 Flecainide [Tambocor] 50 mg PO BID 05/03/22 05/04/22 Previous Rx's Medication Instructions Recorded Albuterol Inhaler [Ventolin Hfa 1 - 2 puff INHALATION Q6H PRN #1 09/27/23 Inhaler] each Allergies Allergy/AdvReac Type Severity Reaction Status Date / Time No Known Allergies Allergy Verified 09/27/23 14:33 Review of Systems ROS Other: All systems not noted in ROS Statement are negative. <Christianne Antoine - Last Filed: 09/27/23 14:36> ROS Other: All systems not noted in ROS Statement are negative. <Barrera Adams - Last Filed: 09/27/23 19:07> ROS Statement: Those systems with pertinent positive or pertinent negative responses have been documented in the HPI. Past Medical History Past Medical History: Atrial Fibrillation, GERD/Reflux, Hyperlipidemia, Hypertension, Osteoarthritis (OA) Additional Past Medical History / Comment(s): See Dr Patton's H&P. SOB. Hx Gout with current flare up. History of Any Multi-Drug Resistant Organisms: None Reported Past Surgical History: Appendectomy, Cardiac Ablation, Joint Replacement, Orthopedic Surgery Additional Past Surgical History / Comment(s): Cardioversion, TOTAL LEFT SHOULDER REPLACEMENT, LEFT KNEE replacement, RIGHT KNEE REPLACEMENT X2,. PICC LINE INSERTION(for infection after knee replacement) AND LATER REMOVED. Past Anesthesia/Blood Transfusion Reactions: No Reported Reaction Additional Past Anesthesia/Blood Transfusion Reaction / Comment(s): No hx blood transfusion. Past Psychological History: Anxiety, Depression Smoking Status: Former smoker Past Alcohol Use History: Occasional Past Drug Use History: Marijuana - Past Family History Son(s) Family Medical History: No Reported History Mother Family Medical History: No Reported History <Christianne Antoine - Last Filed: 09/27/23 14:36> General Exam Limitations: no limitations <Christianne Antoine - Last Filed: 09/27/23 14:36> General appearance: alert, in no apparent distress Eye exam: Present: normal appearance Neck exam: Present: normal inspection Respiratory exam: Present: wheezes (Wheezing and right lower lung base, left lung clear. No respiratory distress.) GI/Abdominal exam: Present: soft Neurological exam: Present: alert, oriented X3 Skin exam: Present: warm, dry <Barrera Adams - Last Filed: 09/27/23 19:07> - General Exam Comments Initial Comments: General: Well-appearing, nontoxic, no acute distress. Head: Normocephalic, atraumatic Eyes: PERRLA, EOMI ENT: Airway patent Chest: Nonlabored breathing Skin: No visual rash, normal skin tone Neuro: Alert and oriented 3 Musculoskeletal: No gross abnormalities I completed the quick note portion of this chart signed Christianne Antoine PA-C (Christianne Antoine) Course Vital Signs 09/27/23 09/27/23 09/27/23 14:31 18:46 18:57 Temperature 98.3 F Pulse Rate 66 70 76 Respiratory 18 Rate Blood Pressure 137/82 O2 Sat by Pulse 98 Oximetry 09/27/23 18:59 Temperature 98.5 F Pulse Rate 66 Respiratory 16 Rate Blood Pressure 135/82 O2 Sat by Pulse 97 Oximetry Medical Decision Making <OlyleahBarrera mejia - Last Filed: 09/27/23 19:07> - Medical Decision Making Was pt. sent in by a medical professional or institution (KATY Parada, SLIP INJECTOR AND APPLICATOR, urgent care, hospital, or fpc...) When possible be specific @ -No Did you speak to anyone other than the patient for history (EMS, parent, family, police, friend...)? What history was obtained from this source @ -No Did you review nursing and triage notes (agree or disagree)? Why? @ -I reviewed and agree with nursing and triage notes Were old charts reviewed (outside hosp., previous admission, EMS record, old EKG, old radiological studies, urgent care reports/EKG's, fpc records)? Report findings @ -No old charts were reviewed Differential Diagnosis (chest pain, altered mental status, abdominal pain women, abdominal pain men, vaginal bleeding, weakness, fever, dyspnea, syncope, headache, dizziness, GI bleed, back pain, seizure, CVA, palpatations, mental health, musculoskeletal)? @ -Differential Dyspnea: Coronary syndrome, arrhythmia, tamponade, asthma, COPD, pulmonary embolism, pneumonia, pneumothorax, pulmonary effusion, anaphylaxis, diabetic ketoacidosis, flailed chest, pulmonary contusion, diaphragmatic rupture, anemia, neuromuscular, this is not meant to be an all-inclusive list. EKG interpreted by me (3pts min.). @ -None X-rays interpreted by me (1pt min.). @ -Chest x-ray interpreted by me showing no evidence of pneumonia CT interpreted by me (1pt min.). @ -None done U/S interpreted by me (1pt. min.). @ -None done What testing was considered but not performed or refused? (CT, X-rays, U/S, labs)? Why? @ -None What meds were considered but not given or refused? Why? @ -None Did you discuss the management of the patient with other professionals (professionals i.e. , PA, SLIP INJECTOR AND APPLICATOR, lab, RT, psych nurse, social science analyst, clinical physician assistant, teacher, public affairs officer, caseworker intake)? Give summary @ -No Was smoking cessation discussed for >3mins.? @ -No Was critical care preformed (if so, how long)? @ -No Were there social determinants of health that impacted care today? How? (Homelessness, low income, unemployed, alcoholism, drug addiction, transportation, low edu. Level, literacy, decrease access to med. care, senior care, re hab)? @ -No Was there de-escalation of care discussed even if they declined (Discuss DNR or withdrawal of care, Hospice)? DNR status @ -No What co-morbidities impacted this encounter? (DM, HTN, Smoking, COPD, CAD, Cancer, CVA, ARF, Chemo, Hep., AIDS, mental health diagnosis, sleep apnea, morbid obesity)? @ -None Was patient admitted / discharged? Hospital course, mention meds given and route, prescriptions, significant lab abnormalities, going to OR and other pertinent info. @ -Discharge 72-year-old male presents to the ED with a chief complaint of cough and congestion ongoing for the past 2 weeks. Chest x-ray here shows no evidence of pneumonia. Cephid (-). He did have some respiratory wheezing on exam. Patient was provided a breathing treatment with improvement of this. Patient reports significant improvement of symptoms after breathing treatment. Patient was also given a shot of Solu-Medrol and provided prescription for inhaler. Advised follow-up with PCP. Discharged home in stable condition. Discussed return precautions with patient and family who verbalizes agreement. Undiagnosed new problem with uncertain prognosis? @ -No Drug Therapy requiring intensive monitoring for toxicity (Heparin, Nitro, Insulin, Cardizem)? @ -No Were any procedures done? @ -No Diagnosis/symptom? @ -Bronchitis Acute, or Chronic, or Acute on Chronic? @ -Acute Uncomplicated (without systemic symptoms) or Complicated (systemic symptoms)? @ -Uncomplicated Side effects of treatment? @ -No Exacerbation, Progression, or Severe Exacerbation? @ -No Poses a threat to life or bodily function? How? (Chest pain, [place], [place], pneumonia, PE, COPD, DKA, ARF, appy, cholecystitis, CVA, Diverticulitis, Homicidal, Suicidal, threat to staff... and all critical care pts) @ -No (Barrera Adams) - Lab Data Lab Results 09/27/23 Range/Units 17:30 Influenza Type A (PCR) Not Detected (Not Detectd) Influenza Type B (PCR) Not Detected (Not Detectd) RSV (PCR) Not Detected (Not Detectd) SARS-CoV-2 (PCR) Not Detected (Not Detectd) Disposition <Christianne Antoine - Last Filed: 09/27/23 14:36> Is patient prescribed a controlled substance at d/c from ED?: No Time of Disposition: 19:07 <Barrera Adams - Last Filed: 09/27/23 19:07> Clinical Impression: Bronchitis Disposition: HOME SELF-CARE Condition: Good Instructions (If sedation given, give patient instructions): Acute Bronchitis (ED) Additional Instructions: Please return to the Emergency Department if symptoms worsen or any other concerns. Follow up with your primary care provider. Prescriptions: Albuterol Inhaler [Ventolin Hfa Inhaler] 1 - 2 puff INHALATION Q6H PRN #1 each PRN Reason: Dyspnea Referrals: Jf Reddy DO [Primary Care Provider] - 1-2 days
[2023-09-27 14:55] VITALS: PULSE 66
--- NOTE | 2023-09-27 16:47 | XR ---
EXAMINATION TYPE: XR chest 2V DATE OF EXAM: 09/27/2023 COMPARISON: 08/13/2019 INDICATION: Cough TECHNIQUE: Frontal and lateral views of the chest are obtained. FINDINGS: The heart size is normal. The pulmonary vasculature is normal. The lungs are clear. Left shoulder prosthesis is evident. IMPRESSION: 1. No acute pulmonary process.
[2023-09-27] MEDS ORDERED: methylPREDNISolone SOD SUCCI 125 MG/2 ML VIAL IM ONE (18:05)
[2023-09-27] MEDS ORDERED: IPRATROPIUM-ALBUTEROL 3 ML NEB INHALATION STA (18:05)
[2023-09-27 19:04] VITALS: BP 135/82; RESP 16; TEMP 98.5
== END 2023-09-27 19:19 | disposition home or self-care (01) ==
LOC: EC 14:25
DX: J40 Bronchitis, not specified as acute or chronic (principal); I10 Essential (primary) hypertension; E78.5 Hyperlipidemia, unspecified; I48.91 Unspecified atrial fibrillation; K21.9 Gastro-esophageal reflux disease without esophagitis; F12.90 Cannabis use, unspecified, uncomplicated; Z86.59 Personal history of other mental and behavioral disorders; Z87.891 Personal history of nicotine dependence; Z79.899 Other long term (current) drug therapy; Z20.822 Contact with and (suspected) exposure to COVID-19
CPT/HCPCS: 94640; 87636; 71046; 99284; 96372; J2930

== ENCOUNTER 2024-07-09 06:45 | Day surgery (SDC) | payer MEDICARE ==
[2024-07-09] MEDS ORDERED: SODIUM CHLORIDE 0.9% 500 ML BAG ONE (06:55)
[2024-07-09] MEDS ORDERED: PROPOFOL 10 MG/ML 20 ML VIAL IV ONE (07:25)
[2024-07-09] MEDS ORDERED: LIDOCAINE 1% INJ 10MG/ML (20 ML MDV) ONE (07:25)
[2024-07-09] MEDS ORDERED: BENZOCAINE SPRAY 1 CAN ONE (07:27)
--- NOTE | 2024-08-29 15:31 | ECHOT ---
TRANSESOPHAGEAL ECHOCARDIOGRAM INDICATION: Atrial fibrillation. PROCEDURE: After explaining the procedure to the patient as well as risks and complications, his blood pressure, heart rate, O2 saturation were monitored. His throat was sprayed with Cetacaine. He received sedation per Anesthesia Department. Subsequently, the probe was introduced. Images were obtained. Following that, the probe was removed. There was no immediate complication. FINDINGS: Left atrial size is dilated. Left atrial appendage is normal. Left ventricular size and systolic function normal. The aortic valve is a tricuspid valve and appears to be normal. The mitral valve revealed mild thickening of the mitral valve leaflets and mild calcification of the annulus. Tricuspid valve is normal. Descending thoracic aorta appears to be normal. No pericardial effusion was noted. Contrast bubble study revealed mild shunting across the interatrial septum through a PFO with [id number] shunting. Doppler pulse wave and color Doppler obtained revealed moderate mitral and tricuspid regurgitation with [id number] shunting through a patent foramen ovale. IMPRESSION: 1. Dilated left atrium with normal appearance of the left atrial appendage. 2. Normal left ventricular size and systolic function. 3. Moderate tricuspid and mitral regurgitation. 4. Patent foramen ovale with bidirectional flow. 5. No pericardial effusion. CARDIOVERSION: After obtaining KORI and obtaining sedated state per Anesthesia Department, synchronized biphasic cardioversion using 150 joules was performed with muslim of sinus mechanism. There was no immediate complication. AMELIAODL / IJN: [id number] / MTDRo
== END 2024-07-09 09:15 ==
LOC: OR 06:45
PROVIDERS: ATTEND Internal Medicine Interventional Cardiology
DX: I48.11 Longstanding persistent atrial fibrillation
CPT/HCPCS: 92960; 93312; 93320; 93325

== ENCOUNTER → 2024-08-13 | Outpatient (CLI) | payer MEDICARE ==
--- NOTE | 2024-08-14 12:42 | CT ---
EXAMINATION TYPE: CT chest wo con DATE OF EXAM: 08/13/2024 COMPARISON: Radiograph 09/27/2023 HISTORY: 73-year-old male R06.00, R07.89, R06.02, Chronic SOB TECHNIQUE: Contiguous axial scanning of the chest without IV contrast. Coronal/sagittal reconstructi ons performed. CT DLP: 667mGycm. Automatic exposure control utilized for a dose reduction. FINDINGS: The heart is normal size without pericardial effusion. LAD and circumflex coronary calcifications are present. Ectatic ascending aorta 3.8 cm. Mild atherosclerotic arch calcifications with conventional arch vesse l branching anatomy. Numerous prominent but nonenlarged mediastinal lymph nodes are present measuring 8 mm. Some of these contain some calcifications and may indicate prior granulomatous disease. There is reticular change at the bilateral lower lungs with scattered mild subpleural groundglass lupe nge mid and lower lungs. Additional patchy groundglass changes present in the upper lungs as well. So me scattered cystic change in part likely relating to emphysematous change. Mild to moderate diffuse bronchial wall thickening. A few benign calcified granulomas are present on both sides. There is irregular subpleural opacity with adjacent small pleural thickening posterior right lung bas e measuring up to 2.7 cm. Given the adjacent pleural thickening, pleural parenchymal scarring and a s mall area of rounded atelectasis is favored. Short interval follow-up to reassess. Otherwise, no consolidation or pleural effusion. Visualized upper abdomen shows a tiny 5 mm gallstone. Bones: Extensive dish throughout the thoracic spine. Reversed left shoulder arthroplasty. IMPRESSION: 1. Reticular and groundglass change throughout the lungs. Some superimposed cystic change which may r elate to a component of COPD. Some differential considerations include chronic hypersensitivity pneum onitis, NSIP, DIP, and chronic postinfectious scarring. Consider pulmonary medicine referral if no es tablished diagnosis. 2. A focal 2.7 cm subpleural opacity at the posterior right base. Given adjacent pleural thickening, pleural parenchymal scarring or a focus of rounded atelectasis is favored. Recommend 6 month follow-u p CT chest to ensure stability. 3. Evidence of prior granulomatous disease. 4. LAD and circumflex coronary artery calcifications. 5. A 5 mm gallstone. Extensive DISH throughout the thoracic spine. [facility], , 08/14/2024 12:40 PM
== END | disposition home or self-care (01) ==
LOC: RADCTMAIN 13:29
PROVIDERS: ATTEND Family Medicine
DX: I25.10 Atherosclerotic heart disease of native coronary artery without angina pectoris (principal); K80.20 Calculus of gallbladder without cholecystitis without obstruction; R07.89 Other chest pain; R06.02 Shortness of breath; J94.8 Other specified pleural conditions
CPT/HCPCS: 71250

== ENCOUNTER 2025-06-13 09:29 | Observation (INO) | payer MEDICARE ==
--- NOTE | 2025-06-13 09:59 | ED ---
General Adult HPI - General Chief complaint: Fall Stated complaint: Fall-Back Injury Time Seen by Provider: 06/13/25 09:44 Source: patient Mode of arrival: ambulatory Limitations: no limitations - History of Present Illness Initial comments: Dictation was produced using [employer] dictation software. please excuse any grammatical, word or spelling errors. Chief Complaint: 74-year-old male presents with fall and back injury History of Present Illness: Patient 24-year-old male was walking up the stairs. He usually grabs a railing. States that his hand slipped on the railing causing him to fall backwards. States that he fell on the corner of furniture on his back. This morning woke up with significant bruising and pain to his back area. Patient take Xarelto. Denies any head injury. States that he has significant tenderness and bruising to his back. The ROS documented in this emergency department record has been reviewed and confirmed by me. Those systems with pertinent positive or negative responses have been documented in the HPI. All other systems are other negative and/or noncontributory. - Related Data Home Medications Medication Instructions Recorded Confirmed Atorvastatin [Lipitor] 80 mg PO DAILY 02/20/16 06/13/25 Pantoprazole [Protonix] 40 mg PO BID 02/20/16 06/13/25 Fexofenadine HCl 180 mg PO W/SUPPER 05/25/18 06/13/25 Citalopram Hydrobromide 40 mg PO DAILY 04/01/20 06/13/25 [Citalopram HBr] Rivaroxaban [Xarelto] 15 mg PO W/SUPPER 11/03/20 06/13/25 Metoprolol Tartrate [Lopressor] 75 mg PO BID 11/05/20 06/13/25 Magnesium 400 mg PO DAILY 12/11/24 06/13/25 allopurinoL 100 mg PO W/SUPPER 12/11/24 06/13/25 Cholecalciferol [Vitamin D3 (125 125 mcg PO MOWEFR 06/13/25 06/13/25 Mcg = 5000 Iu)] Ferrous Sulfate [Iron (65 MG 325 mg PO DAILY 06/13/25 06/13/25 Elemental)] Tamsulosin HCl [Flomax] 0.4 mg PO DAILY 06/13/25 06/13/25 Vit C/E/Zn/Coppr/Lutein/Zeaxan 1 cap PO W/SUPPER 06/13/25 06/13/25 [Preservision Areds 2 Softgel] buPROPion XL [Wellbutrin XL] 150 mg PO DAILY 06/13/25 06/13/25 Previous Rx's Medication Instructions Recorded HYDROcodone/APAP 5-325MG [[place] 1 tab PO Q6HR PRN 3 Days #12 tab 06/13/25 5-325] Losartan [Cozaar] 50 mg PO W/SUPPER 30 Days tab 06/14/25 Allergies Allergy/AdvReac Type Severity Reaction Status Date / Time No Known Allergies Allergy Verified 06/13/25 15:02 Review of Systems ROS Statement: Those systems with pertinent positive or pertinent negative responses have been documented in the HPI. ROS Other: All systems not noted in ROS Statement are negative. Past Medical History Past Medical History: Atrial Fibrillation, GERD/Reflux, Hyperlipidemia, Hypertension, Osteoarthritis (OA) Additional Past Medical History / Comment(s): SOB. Hx gout, see Dr. Ramirez's H & P History of Any Multi-Drug Resistant Organisms: None Reported Past Surgical History: Appendectomy, Cardiac Ablation, Joint Replacement, Orthopedic Surgery Additional Past Surgical History / Comment(s): Cardioversion, TOTAL LEFT SHOULDER REPLACEMENT, LEFT KNEE replacement, RIGHT KNEE REPLACEMENT X3,. PICC LINE INSERTION(for infection after knee replacement) AND LATER REMOVED. Past Anesthesia/Blood Transfusion Reactions: No Reported Reaction Additional Past Anesthesia/Blood Transfusion Reaction / Comment(s): No hx blood transfusion. Past Psychological History: Anxiety, Depression Smoking Status: Former smoker Past Alcohol Use History: Occasional Past Drug Use History: Marijuana - Past Family History Son(s) Family Medical History: No Reported History Mother Family Medical History: No Reported History General Exam - General Exam Comments Initial Comments: PHYSICAL EXAM: General Impression: Alert and oriented x3, not in acute distress HEENT: Normocephalic atraumatic, extra-ocular movements intact, pupils equal and reactive to light bilaterally, mucous membranes moist. Cardiovascular: Heart regular rate and rhythm Chest: Able to complete full sentences, no retractions, no tachypnea Abdomen: abdomen soft, non-tender, non-distended, no organomegaly Musculoskeletal: Pulses present and equal in all extremities, no peripheral edema, large area of bruising and hematoma measuring approximately 10 x 10 inches to the back with significant palpatory tenderness Motor: no focal deficits noted Neurological: CN II-XII grossly intact, no focal motor or sensory deficits noted Skin: Intact with no visualized rashes Psych: Normal affect and mood Limitations: no limitations Course Vital Signs 06/13/25 06/13/25 06/13/25 09:37 15:15 18:35 Temperature 97.8 F 97.7 F Pulse Rate 74 81 59 L Pulse Rate [ Pulse Oximetery ] Respiratory 18 17 18 Rate Blood Pressure 131/82 119/77 102/66 Blood Pressure [Left Arm] O2 Sat by Pulse 99 100 98 Oximetry 06/13/25 20:00 Temperature 97.5 F L Pulse Rate Pulse Rate [ 86 Pulse Oximetery ] Respiratory 18 Rate Blood Pressure Blood Pressure 173/91 [Left Arm] O2 Sat by Pulse 98 Oximetry - Reevaluation(s) Reevaluation #1: 06/13/25 13:15 Case discussed with general surgery recommend patient be given abdominal binder and his anticoagulation be stopped and also reversed. Case discussed with cardiology states that reversal not indicated however having his anticoagulation for 3 days is indicated. She is told to follow-up in cardiology office. EKG Findings - EKG Comments: EKG Findings:: My EKG interpretation: Ventricular rate 75, sinus rhythm, AZ interval 202, QRS 97, QTc 420. No AZ prolongation, no QTC prolongation, no ST or T-wave changes noted. EKG compared to during 2024 showing no changes. Overall, this EKG is unremarkable Medical Decision Making - Medical Decision Making Please see other ER note for further detail - Lab Data Result diagrams: 06/14/25 04:48 06/14/25 04:48 Lab Results 06/13/25 06/13/25 06/13/25 Range/Units 10:04 10:04 10:04 WBC 11.77 H (4.50-10.00) 10*3/uL RBC 4.14 L (4.40-5.60) 10*6/uL Hgb 12.4 L (13.0-17.0) g/dL Hct 37.5 L (39.6-50.0) % MCV 90.6 (80.0-97.0) fL MCH 30.0 (27.0-32.0) pg MCHC 33.1 (32.0-37.0) g/dL Plt Count 235 (140-440) 10*3/uL MPV 9.4 L (9.5-12.2) fL Immature Gran % (Auto) 0.6 % Neutrophils % 73.9 % Lymphocytes % 14.6 % Monocytes % 8.4 % Eosinophils % 2.0 % Basophils % 0.5 % Immature Gran # 0.07 H (0.00-0.04) 10*3/uL Neutrophils # 8.70 H (1.80-7.70) 10*3/uL Lymphocytes # 1.72 (0.90-5.00) 10*3/uL Monocytes # 0.99 (0.20-1.00) 10*3/uL Eosinophils # 0.23 (0.04-0.35) 10*3/uL Basophils # 0.06 (0.00-0.10) 10*3/uL PT 13.6 H (10.0-12.5) sec INR 1.3 H (<1.2) APTT 26.7 (22.0-30.0) sec Sodium 139 (137-145) mmol/L Potassium 4.7 (3.5-5.1) mmol/L Chloride 105 (98-107) mmol/L Carbon Dioxide 24 (22-30) mmol/L Anion Gap 10 mmol/L BUN 24 H (9-20) mg/dL Creatinine 1.22 (0.66-1.25) mg/dL Est GFR (CKD-EPI)AfAm 67 (>60 ml/min/1.73 sqM) Est GFR (CKD-EPI)NonAf 58 (>60 ml/min/1.73 sqM) Glucose 105 H (74-99) mg/dL Calcium 9.7 (8.4-10.2) mg/dL Disposition Clinical Impression: Hematoma Disposition: ADMITTED IP TO THIS HOSP Condition: Stable Is patient prescribed a controlled substance at d/c from ED?: Yes If prescribed controlled substance>3 days was MAPS reviewed?: Prescribed <3 Days Time of Disposition: 13:20
[2025-06-13 10:17] LABS: Basophils # (A) 0.06 10*3/uL (0.00-0.10); Basophils % (A) 0.5 %; Eosinophils # (A) 0.23 10*3/uL (0.04-0.35); Eosinophils % (A) 2.0 %; HCT 37.5 % (39.6-50.0); HGB 12.4 g/dL (13.0-17.0); Lymphocytes # (A) 1.72 10*3/uL (0.90-5.00); Lymphocytes % (A) 14.6 %; MCH 30.0 pg (27.0-32.0); MCHC 33.1 g/dL (32.0-37.0); MCV 90.6 fL (80.0-97.0); Monocytes # (A) 0.99 10*3/uL (0.20-1.00); Monocytes % (A) 8.4 %; Neutrophils # (A) 8.70 10*3/uL (1.80-7.70); Neutrophils % (A) 73.9 %; Platelet Count 235 10*3/uL (140-440); RBC 4.14 10*6/uL (4.40-5.60); RDW 14.5 % (11.5-14.5); WBC 11.77 10*3/uL (4.50-10.00)
[2025-06-13 10:28] LABS: INR 1.3 (<1.2); Partial Thromboplastin Time 26.7 sec (22.0-30.0); Prothrombin Time 13.6 sec (10.0-12.5)
[2025-06-13 10:41] LABS: African American GFR (CKD) 67 (>60 ml/min/1.73 sqM); Anion Gap 10 mmol/L; Blood Urea Nitrogen 24 mg/dL (9-20); Calcium 9.7 mg/dL (8.4-10.2); Carbon Dioxide 24 mmol/L (22-30); Chloride 105 mmol/L (98-107); Glucose 105 mg/dL (74-99); Non-African American GFR(CKD) 58 (>60 ml/min/1.73 sqM); Potassium 4.7 mmol/L (3.5-5.1); Sodium 139 mmol/L (137-145)
--- NOTE | 2025-06-13 11:52 | CT ---
EXAMINATION TYPE: CT brain wo con DATE OF EXAM: 06/13/2025 11:37 AM COMPARISON: 10/06/2018 CLINICAL INDICATION: Male, 74 years old with history of pain after Fall, TECHNIQUE: Examination was done in axial plane without intravenous contrast. Coronal and sagittal r econstructions performed. CT DLP: 1349.4 mGycm, Automated exposure control for dose reduction was used. FINDINGS: There is no evidence of acute intracranial hemorrhage, acute ischemic changes, mass, mass-effect, or extra-axial fluid collection. There is no effacement of cerebral sulci or basal subarachnoid cister ns. There is no hydrocephalus. There is no midline shift. Gilmore-white matter distinction is preserv ed. Paranasal sinuses and mastoid air cells well pneumatized. Orbits and globes are intact. IMPRESSION: No acute intracranial abnormality seen. [facility], , 06/13/2025 11:50 AM
--- NOTE | 2025-06-13 12:33 | CT ---
EXAMINATION TYPE: CT ChestAbdPelvis w con DATE OF EXAM: 06/13/2025 11:40 AM COMPARISON: CT chest 08/13/2024 CLINICAL INDICATION: Male, 74 years old with history of large back hematoma, after fall; PHH, pain Technique: CT of the chest, abdomen, and pelvis after IV contrast. Delayed images through the kidneys and bladder program protocol. Coronal and sagittal reconstructions performed. Contrast used:100 ml mL of Isovue 300 with IV Contrast, CT DLP: 1532.5 mGycm, Automated exposure control for dose reduction was used. Findings: CHEST: The heart is borderline enlarged without pericardial effusion. LAD and circumflex coronary calcificat ions are present. Ectatic ascending aorta 3.9 cm. Minimal atherosclerotic arch calcifications with commensurate vessel branching anatomy. Some scattered prominent right paratracheal lymph nodes measuring up to 1.2 cm remain unchanged. Find ings suggest a chronic reactive/post inflammatory etiology. Moderate emphysematous change. Scattered groundglass and architectural distortion appears relatively unchanged from 08/13/2024. Subpleural opacity posterior right lower lobe a 2.1 cm remains unchanged, probably pleural parenchyma l scarring. Some groundglass changes in the lingula has increased. No pleural effusion. ABDOMEN: The patient is imaged prone due to hematoma. There is a large hypervascular mass within the left liver lobe measuring 8.6 cm. There seems to be wa shout on delayed scan. Small 5 mm gallstone. Portal venous system is patent. No biliary ductal dilatation. Adrenal glands, kidneys, spleen, and pancreas within normal limits. Mild to moderate atherosclerotic calcifications abdominal aorta without aneurysm. No dilated small bowel, free fluid, or free air. No mesenteric or retroperitoneal lymphadenopathy. Mi nimal scattered stool. There is mild proximal sigmoid diverticulosis without pericolonic inflammatory change. Extensive bruising along the posterior lumbar back with a focal right paramedian subcutaneous hematom a measuring 14.4 cm craniocaudal by 5.0 cm AP by 7.3 cm wide. Pelvis: Mild circumferential bladder wall thickening may be chronic for the patient. Prostate gland is border line enlarged at 4.0 cm. No abnormal fluid collection in the pelvis or pelvic lymphadenopathy. Bones: Degenerative change pubic symphysis. Moderate degenerative change both hips. Degenerative bony ankylo sis SI joints. Bilateral L5 pars defects with grade 2 anterolisthesis L5-S1. Moderate to severe degenerative disc di sease lumbar spine. DISH mid and lower thoracic spine. IMPRESSION: Chest: 1. COPD with moderate emphysema and scattered prominent pleural parenchymal scarring, probably sequel a of prior infection. Some groundglass in the lingula has increased. Correlate to exclude superimpose d early infiltrate/pneumonitis. ABDOMEN: 2. A large 8.6 cm hypervascular mass within the left lower lobe. As this was not clearly seen on 08/13, HCC remains to be excluded. Other differential considerations include hepatic adenoma and FNH. 3. Extensive bruising along the posterior lumbar back with a subcutaneous hematoma measuring 14.4 x 7 .3 x 5.0 cm. 4. Incidental osseous findings: DISH within the mid and lower thoracic spine. Degenerative bony ankyl osis SI joints. Moderate to advanced degenerative change lumbar spine. Grade 2 anterolisthesis L5-S1 due to bilateral L5 pars defects. [facility], Workstation: [facility], 06/13/2025 12:30 PM
--- NOTE | 2025-06-13 13:27 | ED ---
Medical Decision Making - Medical Decision Making Was pt. sent in by a medical professional or institution (, PA, COMMERCIAL REAL ESTATE SALES MANAGER, urgent care, hospital, or correction...) When possible be specific @ -No Did you speak to anyone other than the patient for history (EMS, parent, family, police, friend...)? What history was obtained from this source @ -No Did you review nursing and triage notes (agree or disagree)? Why? @ -I reviewed and agree with nursing and triage notes Were old charts reviewed (outside hosp., previous admission, EMS record, old EKG, old radiological studies, urgent care reports/EKG's, correction records)? Report findings @ -No old charts were reviewed Differential Diagnosis (chest pain, altered mental status, abdominal pain women, abdominal pain men, vaginal bleeding, musculoskeletal, weakness, fever, dyspnea, syncope, headache, dizziness, GI bleed, back pain, seizure, CVA, palpatations, mental health)? @ -Hematoma, back fracture, back contusion EKG interpreted by me (3pts min.). @ -See above X-rays interpreted by me (1pt min.). @ -None done CT interpreted by me (1pt min.). @ -CT chest and pelvis obtained showing large hematoma to the lower back. There were some incidental findings seen on CT chest showing mass to the left lower lobe U/S interpreted by me (1pt. min.). @ -None done What testing was considered but not performed or refused? (CT, X-rays, U/S, labs)? Why? @ -None What meds were considered but not given or refused? Why? @ -None Was smoking cessation discussed for >3mins.? @ -No Were there social determinants of health that impacted care today? How? (Homelessness, low income, unemployed, alcoholism, drug addiction, transportation, low edu. Level, literacy, decrease access to med. care, usp, rehab)? @ -No Was there de-escalation of care discussed even if they declined (Discuss DNR or withdrawal of care, Hospice)? DNR status @ -No What co-morbidities impacted this encounter? (DM, HTN, Smoking, COPD, CAD, Cancer, CVA, ARF, Chemo, Hep., AIDS, mental health diagnosis, sleep apnea, morbid obesity)? @ -Anticoagulation use Was patient admitted / discharged? Hospital course, mention meds given and route, prescriptions, significant lab abnormalities, going to OR and other pertinent info. @ -74-year-old male presents with back injury after suffering a fall mechan ically. He has a large painful area on his back. Vital signs stable. Patient no acute distress he has a large hematoma of his back seen on CT imaging. Labs unremarkable. Case discussed with general surgery and cardiology as described above. Provided with abdominal binder. Patient told to discontinue use for his anticoagulation medication for 3 days and to follow-up with his outpatient docto rs Did you discuss the management of the patient with other professionals (professionals i.e. , PA, COMMERCIAL REAL ESTATE SALES MANAGER, lab, RT, psych nurse, director of social work, military education coordinator, teacher, regulatory compliance officer, field nurse case manager)? Give summary @ -See above Was critical care preformed (if so, how long)? @ -No Undiagnosed new problem with uncertain prognosis? @ -No Drug Therapy requiring intensive monitoring for toxicity (Heparin, Nitro, Insulin, Cardizem)? @ -No Were any procedures done? @ -No Diagnosis/symptom? Acute, or Chronic, or Acute on Chronic? Uncomplicated (without systemic symptoms) or Complicated (systemic symptoms)? @ -Back hematoma Side effects of treatment? @ -No Exacerbation, Progression, or Severe Exacerbation? @ -No Poses a threat to life or bodily function? How? (Chest pain, USA, AR, pneumonia, PE, COPD, DKA, ARF, appy, cholecystitis, CVA, Diverticulitis, Homicidal, Suicidal, threat to staff... and all critical care pts) @ -yes - Lab Data Result diagrams: 06/13/25 10:04 06/13/25 10:04 Lab Results 06/13/25 06/13/25 06/13/25 Range/Units 10:04 10:04 10:04 WBC 11.77 H (4.50-10.00) 10*3/uL RBC 4.14 L (4.40-5.60) 10*6/uL Hgb 12.4 L (13.0-17.0) g/dL Hct 37.5 L (39.6-50.0) % MCV 90.6 (80.0-97.0) fL MCH 30.0 (27.0-32.0) pg MCHC 33.1 (32.0-37.0) g/dL Plt Count 235 (140-440) 10*3/uL MPV 9.4 L (9.5-12.2) fL Immature Gran % (Auto) 0.6 % Neutrophils % 73.9 % Lymphocytes % 14.6 % Monocytes % 8.4 % Eosinophils % 2.0 % Basophils % 0.5 % Immature Gran # 0.07 H (0.00-0.04) 10*3/uL Neutrophils # 8.70 H (1.80-7.70) 10*3/uL Lymphocytes # 1.72 (0.90-5.00) 10*3/uL Monocytes # 0.99 (0.20-1.00) 10*3/uL Eosinophils # 0.23 (0.04-0.35) 10*3/uL Basophils # 0.06 (0.00-0.10) 10*3/uL PT 13.6 H (10.0-12.5) sec INR 1.3 H (<1.2) APTT 26.7 (22.0-30.0) sec Sodium 139 (137-145) mmol/L Potassium 4.7 (3.5-5.1) mmol/L Chloride 105 (98-107) mmol/L Carbon Dioxide 24 (22-30) mmol/L Anion Gap 10 mmol/L BUN 24 H (9-20) mg/dL Creatinine 1.22 (0.66-1.25) mg/dL Est GFR (CKD-EPI)AfAm 67 (>60 ml/min/1.73 sqM) Est GFR (CKD-EPI)NonAf 58 (>60 ml/min/1.73 sqM) Glucose 105 H (74-99) mg/dL Calcium 9.7 (8.4-10.2) mg/dL Disposition Clinical Impression: Hematoma Disposition: HOME SELF-CARE Condition: Fair Instructions (If sedation given, give patient instructions): Fall Prevention for Older Adults (ED) Additional Instructions: Follow-up with general surgery, cardiology and primary care doctor. There were also were incidental findings seen on your CT that you should follow-up with your primary care doctor for. There was a mass along with other incidental findings seen on your chest CT Prescriptions: HYDROcodone/APAP 5-325MG [[place] 5-325] 1 tab PO Q6HR PRN 3 Days #12 tab PRN Reason: Severe Pain Is patient prescribed a controlled substance at d/c from ED?: Yes If prescribed controlled substance>3 days was MAPS reviewed?: Prescribed <3 Days Referrals: Jaiden Patton MD [STAFF PHYSICIAN] - 1-2 days Marco Koch DO [Doctor of Osteopathic Medicine] - 1-2 days Jf Reddy DO [Primary Care Provider] - 1-2 days Time of Disposition: 13:22
[2025-06-13] MEDS ORDERED: NALOXONE 0.4 MG/ML 1 ML VIAL IV PRN (13:44)
[2025-06-13] MEDS ORDERED: MORPHINE SULFATE 4 MG/ML SYRINGE IV PRN (13:44)
[2025-06-13] MEDS: SODIUM CHLORIDE 0.9% 1,000 ML IV SCH (15:53)
[2025-06-13] MEDS ORDERED: ACETAMINOPHEN TAB 325 MG TAB PO PRN (16:42)
[2025-06-13] MEDS ORDERED: IBUPROFEN 800 MG TAB PO PRN (16:43)
--- NOTE | 2025-06-13 18:14 | P.HPIM ---
History of Present Illness H&P Date: 06/13/25 Patient is a 74-year-old male with PMHx of A-fib with ablation, HLD, gout, depression who presents to the ED status post fall last night. Patient states that he fell asleep in the recliner in his living room and went to walk to the bathroom which required taking 1 step up the stairs. He states he was holding the railings on the stairs with his hands however his right hand slipped as he is and was taking a step up resulting in him falling onto his back. He states as he was following his back at the corner of the TV stand and then he hit the floor. He denies hitting his head or hurting any other part of his body. He denies any weakness, dizziness or lightheadedness. Patient states he was able to get by himself after a few minutes. He also endorses an upset stomach last night which he believes was due to the pain. At this time, he complains of a hematoma on his back that is painful to touch. He notes initially last night, there was minimal bruising to his back however this morning the bruise got progressively worse. At home, patient is able to ambulate by himself without any assistance, walker or cane. He denies chest pain, shortness of breath, abdominal pain, diarrhea, nausea, vomiting. ED vitals: T97.8, HR 74, RR 18, BP 131/82, 99% on RA ED labs: WBC 11.77, hemoglobin 12.4, platelets 235, PT 13.6, INR 1.3, sodium 139, potassium 4.7, BUN 24, creatinine 1.22 ED imaging: CT brain -no acute intracranial abnormality. CT abdomen pelvis -COPD with moderate emphysema, large 8.6 cm hypervascular mass within left upper lobe, bruising along posterior lumbar back with subcutaneous hematoma 14.4 x 7.3 x 5.0 cm, grade 2 anterior listhesis L5-S1 due to bilateral L5 pars defect. ED documentation reviewed and case discussed with ED provider. Per ED note, general surgery recommended abdominal binder and holding Xarelto and cardiology notes no reversal for Xarelto indicated at this time. Review of systems: Pertinent positives and negatives as discussed in HPI, a complete review of systems was performed and all other systems are negative. 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 Large hematoma and bruising to lumbar back. Head: atraumatic, normocephalic, symmetric Eyes: EOMI, anicteric sclera, pupils equal round reactive to light ENT: Nose and ears atraumatic Mouth: no lip lesion, Cardiovascular: S1S2 reg, no murmur, no edema Lungs: CTA bilateral, no rhonchi, no rales, no accessory muscle use Abdominal: soft, nontender to palpation, no guarding Ext: muscle strength 5 out of 5 in all 4 extremities grossly, no gross muscle atrophy Neuro: CN II-XI grossly intact, no gross focal neuro deficits Psych: Alert, oriented to person, place, and time Assessment/Plan: Hematoma status post mechanical fall - Pain control: Tylenol 650 every 6 hours as needed, Lyman 53 25 every 4 hours as needed - General Surgery consulted, recommends abdominal binder and holding Xarelto - Cardiology consulted, recommends holding Xarelto for 3 days however reversal not indicated at this time - Will continue to monitor with CBC Incidental liver mass Hepatocellular carcinoma versus focal nodular hyperplasia versus hepatic adenoma versus hemangioma - Ordered hepatitis panel - Ordered tumor markers: CEA, AFP, CA 199 - Ordered CMP for liver enzymes - May need outpatient imaging Chronic: A-fib with ablation -restarted home metoprolol tartrate HTN -restarted home GERD -restarted home Protonix Gout -restarted home allopurinol HLD -restarted home Lipitor Depression -restarted home Wellbutrin and Celexa DVT prophylaxis: Holding Xarelto due to hematoma, patient ambulatory The patient is admitted with an anticipated discharge less than 2 midnight stay for evaluation of hematoma and incidental liver mass. CODE STATUS: FULL CODE Discussed with: Dr. Vega Anticipated discharge place: Home Natalie Pandey DO PGY-1 IM Dictation was produced using dragon dictation software. Please excuse any grammatical, word or spelling errors. I have seen and evaluated the patient today. Discussed with the resident and agree with the residents finding and plan as documented in the resident's note. Changes highlighted in blue font. Past Medical History Past Medical History: Atrial Fibrillation, GERD/Reflux, Hyperlipidemia, Hypertension, Osteoarthritis (OA) Additional Past Medical History / Comment(s): SOB. Hx gout, see Dr. Ramirez's H & P History of Any Multi-Drug Resistant Organisms: None Reported Past Surgical History: Appendectomy, Cardiac Ablation, Joint Replacement, Orthopedic Surgery Additional Past Surgical History / Comment(s): Cardioversion, TOTAL LEFT SHOULDER REPLACEMENT, LEFT KNEE replacement, RIGHT KNEE REPLACEMENT X3,. PICC LINE INSERTION(for infection after knee replacement) AND LATER REMOVED. Past Anesthesia/Blood Transfusion Reactions: No Reported Reaction Additional Past Anesthesia/Blood Transfusion Reaction / Comment(s): No hx blood transfusion. Past Psychological History: Anxiety, Depression Smoking Status: Former smoker Past Alcohol Use History: Occasional Past Drug Use History: Marijuana - Past Family History Son(s) Family Medical History: No Reported History Mother Family Medical History: No Reported History Medications and Allergies Home Medications Medication Instructions Recorded Confirmed Type Atorvastatin [Lipitor] 80 mg PO DAILY 02/20/16 06/13/25 History Pantoprazole [Protonix] 40 mg PO BID 02/20/16 06/13/25 History Fexofenadine HCl 180 mg PO W/SUPPER 05/25/18 06/13/25 History Losartan Potassium 100 mg PO W/SUPPER 05/25/18 06/13/25 History Citalopram Hydrobromide 40 mg PO DAILY 04/01/20 06/13/25 History [Citalopram HBr] Rivaroxaban [Xarelto] 15 mg PO W/SUPPER 11/03/20 06/13/25 History Metoprolol Tartrate [Lopressor] 75 mg PO BID 11/05/20 06/13/25 History Magnesium 400 mg PO DAILY 12/11/24 06/13/25 History allopurinoL 100 mg PO W/SUPPER 12/11/24 06/13/25 History Cholecalciferol [Vitamin D3 (125 125 mcg PO MOWEFR 06/13/25 06/13/25 History Mcg = 5000 Iu)] Ferrous Sulfate [Feosol] 325 mg PO DAILY 06/13/25 06/13/25 History HYDROcodone/APAP 5-325MG [[place] 1 tab PO Q6HR PRN 3 Days #12 tab 06/13/25 Rx 5-325] Tamsulosin HCl [Flomax] 0.4 mg PO DAILY 06/13/25 06/13/25 History Vit C/E/Zn/Coppr/Lutein/Zeaxan 1 cap PO W/SUPPER 06/13/25 06/13/25 History [Preservision Areds 2 Softgel] buPROPion XL [Wellbutrin XL] 150 mg PO DAILY 06/13/25 06/13/25 History Allergies Allergy/AdvReac Type Severity Reaction Status Date / Time No Known Allergies Allergy Verified 06/13/25 15:02 Physical Exam Vitals: Vital Signs Temp Pulse Resp BP Pulse Ox 06/13/25 15:15 97.7 F 81 17 119/77 100 06/13/25 09:37 97.8 F 74 18 131/82 99 Intake and Output 06/13/25 06/13/25 06/13/25 06:59 14:59 22:59 Other: Weight 90.718 kg Results CBC & Chem 7: 06/13/25 10:04 06/13/25 10:04 Labs: Abnormal Lab Results - Last 24 Hours (Table) 06/13/25 06/13/25 06/13/25 Range/Units 10:04 10:04 10:04 WBC 11.77 H (4.50-10.00) 10*3/uL RBC 4.14 L (4.40-5.60) 10*6/uL Hgb 12.4 L (13.0-17.0) g/dL Hct 37.5 L (39.6-50.0) % MPV 9.4 L (9.5-12.2) fL Immature Gran # 0.07 H (0.00-0.04) 10*3/uL Neutrophils # 8.70 H (1.80-7.70) 10*3/uL PT 13.6 H (10.0-12.5) sec INR 1.3 H (<1.2) BUN 24 H (9-20) mg/dL Glucose 105 H (74-99) mg/dL
[2025-06-13] MEDS: LORATADINE 10 MG TAB PO SCH (18:35)
[2025-06-13] MEDS: LOSARTAN 50 MG TAB PO SCH (18:35)
[2025-06-13] MEDS: HYDROcodone/APAP 5-325MG 1 EACH TAB PO PRN (18:38)
--- NOTE | 2025-06-13 21:44 | P.GSCN ---
History of Present Illness History of present illness: Patient is a 74-year-old male with PMHx of A-fib with ablation, HLD, gout, depression who presents to the ED status post fall last night. Patient states that he fell asleep in the recliner in his living room and went to walk to the bathroom which required taking 1 step up the stairs. He states he was holding the railings on the stairs with his hands however his right hand slipped as he is and was taking a step up resulting in him falling onto his back. He states as he was following his back at the corner of the TV stand and then he hit the floor. He denies hitting his head or hurting any other part of his body. He denies any weakness, dizziness or lightheadedness. Patient states he was able to get by himself after a few minutes. He also endorses an upset stomach last night which he believes was due to the pain. At this time, he complains of a hematoma on his back that is painful to touch. He notes initially last night, there was minimal bruising to his back however this morning the bruise got progressively worse. At home, patient is able to ambulate by himself without any assistance, walker or cane. He denies chest pain, shortness of breath, abdominal pain, diarrhea, nausea, vomiting. Review of Systems - Constitutional Reports as per HPI Past Medical History Past Medical History: Atrial Fibrillation, GERD/Reflux, Hyperlipidemia, Hypertension, Osteoarthritis (OA) Additional Past Medical History / Comment(s): SOB. Hx gout, see Dr. Ramirez's H & P History of Any Multi-Drug Resistant Organisms: None Reported Past Surgical History: Appendectomy, Cardiac Ablation, Joint Replacement, Orthopedic Surgery Additional Past Surgical History / Comment(s): Cardioversion, TOTAL LEFT SHOULDER REPLACEMENT, LEFT KNEE replacement, RIGHT KNEE REPLACEMENT X3,. PICC LINE INSERTION(for infection after knee replacement) AND LATER REMOVED. Past Anesthesia/Blood Transfusion Reactions: No Reported Reaction Additional Past Anesthesia/Blood Transfusion Reaction / Comm: No hx blood transfusion. Past Psychological History: Anxiety, Depression Smoking Status: Former smoker Past Alcohol Use History: Occasional Past Drug Use History: Marijuana - Past Family History Son(s) Family Medical History: No Reported History Mother Family Medical History: No Reported History Medications and Allergies Home Medications Medication Instructions Recorded Confirmed Type Atorvastatin [Lipitor] 80 mg PO DAILY 02/20/16 06/13/25 History Pantoprazole [Protonix] 40 mg PO BID 02/20/16 06/13/25 History Fexofenadine HCl 180 mg PO W/SUPPER 05/25/18 06/13/25 History Losartan Potassium 100 mg PO W/SUPPER 05/25/18 06/13/25 History Citalopram Hydrobromide 40 mg PO DAILY 04/01/20 06/13/25 History [Citalopram HBr] Rivaroxaban [Xarelto] 15 mg PO W/SUPPER 11/03/20 06/13/25 History Metoprolol Tartrate [Lopressor] 75 mg PO BID 11/05/20 06/13/25 History Magnesium 400 mg PO DAILY 12/11/24 06/13/25 History allopurinoL 100 mg PO W/SUPPER 12/11/24 06/13/25 History Cholecalciferol [Vitamin D3 (125 125 mcg PO MOWEFR 06/13/25 06/13/25 History Mcg = 5000 Iu)] Ferrous Sulfate [Feosol] 325 mg PO DAILY 06/13/25 06/13/25 History HYDROcodone/APAP 5-325MG [[place] 1 tab PO Q6HR PRN 3 Days #12 tab 06/13/25 Rx 5-325] Tamsulosin HCl [Flomax] 0.4 mg PO DAILY 06/13/25 06/13/25 History Vit C/E/Zn/Coppr/Lutein/Zeaxan 1 cap PO W/SUPPER 06/13/25 06/13/25 History [Preservision Areds 2 Softgel] buPROPion XL [Wellbutrin XL] 150 mg PO DAILY 06/13/25 06/13/25 History Allergies Allergy/AdvReac Type Severity Reaction Status Date / Time No Known Allergies Allergy Verified 06/13/25 15:02 Surgical - Exam Osteopathic Statement: *. No significant issues noted on an osteopathic structural exam other than those noted in the History and Physical/Consult. Vital Signs Temp Pulse Resp BP Pulse Ox 97.8 F 74 18 131/82 99 06/13/25 09:37 06/13/25 09:37 06/13/25 09:37 06/13/25 09:37 06/13/25 09:37 General No acute distress alert and oriented x 3 Cardiovascular regular rate and rhythm Pulmonary nonlabored breathing Thoracic atraumatic Abdomen soft nontender nondistended no guarding or rebound tenderness Back demonstrates a 20 x 15 cm hematoma with some blistering Results - Labs 06/13/25 10:04 06/13/25 10:04 Abnormal Lab Results - Last 24 Hours (Table) 06/13/25 06/13/25 06/13/25 Range/Units 10:04 10:04 10:04 WBC 11.77 H (4.50-10.00) 10*3/uL RBC 4.14 L (4.40-5.60) 10*6/uL Hgb 12.4 L (13.0-17.0) g/dL Hct 37.5 L (39.6-50.0) % MPV 9.4 L (9.5-12.2) fL Immature Gran # 0.07 H (0.00-0.04) 10*3/uL Neutrophils # 8.70 H (1.80-7.70) 10*3/uL PT 13.6 H (10.0-12.5) sec INR 1.3 H (<1.2) BUN 24 H (9-20) mg/dL Glucose 105 H (74-99) mg/dL Diabetes panel 06/13/25 Range/Units 10:04 Sodium 139 (137-145) mmol/L Potassium 4.7 (3.5-5.1) mmol/L Chloride 105 (98-107) mmol/L Carbon Dioxide 24 (22-30) mmol/L BUN 24 H (9-20) mg/dL Creatinine 1.22 (0.66-1.25) mg/dL Glucose 105 H (74-99) mg/dL Calcium 9.7 (8.4-10.2) mg/dL Calcium panel 06/13/25 Range/Units 10:04 Calcium 9.7 (8.4-10.2) mg/dL Pituitary panel 06/13/25 Range/Units 10:04 Sodium 139 (137-145) mmol/L Potassium 4.7 (3.5-5.1) mmol/L Chloride 105 (98-107) mmol/L Carbon Dioxide 24 (22-30) mmol/L BUN 24 H (9-20) mg/dL Creatinine 1.22 (0.66-1.25) mg/dL Glucose 105 H (74-99) mg/dL Calcium 9.7 (8.4-10.2) mg/dL Adrenal panel 06/13/25 Range/Units 10:04 Sodium 139 (137-145) mmol/L Potassium 4.7 (3.5-5.1) mmol/L Chloride 105 (98-107) mmol/L Carbon Dioxide 24 (22-30) mmol/L BUN 24 H (9-20) mg/dL Creatinine 1.22 (0.66-1.25) mg/dL Glucose 105 H (74-99) mg/dL Calcium 9.7 (8.4-10.2) mg/dL Assessment and Plan Assessment: 74-year-old male status post fall with back hematoma History of Xarelto use recommend reversal Recommend cardiology consult Ice for constriction of blood vessels Abdominal binder for compression Reevaluate in a.m. Time with Patient: Less than 30
[2025-06-13] MEDS: METOPROLOL TARTRATE 25 MG TAB PO SCH (21:45)
[2025-06-13] MEDS: PANTOPRAZOLE 40 MG TABLET PO SCH (21:45)
[2025-06-14 01:55] VITALS: TEMP 97.7
[2025-06-14] MEDS: HYDROmorphone 0.5 MG/0.5 ML SYRINGE IVP PRN (02:18)
[2025-06-14 05:43] LABS: Basophils # (A) 0.06 10*3/uL (0.00-0.10); Basophils % (A) 0.7 %; Eosinophils # (A) 0.22 10*3/uL (0.04-0.35); Eosinophils % (A) 2.6 %; HCT 31.7 % (39.6-50.0); HGB 10.4 g/dL (13.0-17.0); Lymphocytes # (A) 2.65 10*3/uL (0.90-5.00); Lymphocytes % (A) 30.8 %; MCH 30.0 pg (27.0-32.0); MCHC 32.8 g/dL (32.0-37.0); MCV 91.4 fL (80.0-97.0); Monocytes # (A) 1.08 10*3/uL (0.20-1.00); Monocytes % (A) 12.6 %; Neutrophils # (A) 4.51 10*3/uL (1.80-7.70); Neutrophils % (A) 52.5 %; Platelet Count 185 10*3/uL (140-440); RBC 3.47 10*6/uL (4.40-5.60); RDW 14.8 % (11.5-14.5); WBC 8.59 10*3/uL (4.50-10.00)
[2025-06-14 06:14] LABS: ALT 27 U/L (4-49); AST 29 U/L (17-59); African American GFR (CKD) 74 (>60 ml/min/1.73 sqM); Albumin 3.5 g/dL (3.5-5.0); Albumin/Globulin Ratio 1.3; Alkaline Phosphatase 87 U/L (38-126); Anion Gap 10 mmol/L; Blood Urea Nitrogen 27 mg/dL (9-20); Calcium 9.2 mg/dL (8.4-10.2); Carbon Dioxide 22 mmol/L (22-30); Chloride 105 mmol/L (98-107); Globulin 2.6 g/dL; Glucose 107 mg/dL (74-99); Magnesium 1.6 mg/dL (1.6-2.3); Non-African American GFR(CKD) 64 (>60 ml/min/1.73 sqM); Potassium 4.2 mmol/L (3.5-5.1); Sodium 137 mmol/L (137-145); Total Protein 6.1 g/dL (6.3-8.2)
[2025-06-14 08:10] VITALS: BP 93/58; PULSE 69; RESP 14
[2025-06-14] MEDS: TAMSULOSIN 0.4 MG CAP.ER.24H PO SCH (08:46)
[2025-06-14] MEDS: CITALOPRAM HYDROBROMIDE 20 MG TAB PO SCH (08:46)
[2025-06-14] MEDS: ATORVASTATIN 80 MG TAB PO SCH (08:47)
[2025-06-14] MEDS: FERROUS SULFATE 325 MG TAB PO SCH (08:47)
[2025-06-14] MEDS: buPROPion XL 150 MG TAB.ER.24H PO SCH (08:47)
--- NOTE | 2025-06-14 12:13 | P.CRDCN ---
History of Present Illness Consult date: 06/14/25 Requesting physician: Gonzalez Vega Reason for Consult (text): afib rx management Chief complaint: Hematoma status post fall History of present illness: This is a pleasant 74-year-old gentleman patient of Dr. Patton with past medical history of persistent atrial fibrillation status post multiple cardioversions and ablations, currently maintaining sinus mechanism and has been anticoagulated on Xarelto.. Presented to the hospital with complaints of back pain and hematoma status post fall. He had been feeling very well up until a couple of nights ago. He fell asleep in his recliner and got up to go to the bathroom. There is a step up from the living room to the rest of the house and he uses the door jam to help pull himself up due to his arthritis in his knees and stiffness. He was pulling himself through the doorway when his right hand slipped and he fell backwards landing on a sharp piece of furniture. That evening he had minimal bruising but woke up yesterday with significant bruising and hematoma noted to the lower back.. Diagnostics -EKG: Sinus mechanism - Brain CT: No acute intracranial abnormality seen -CT of the abdomen and pelvis: 1. COPD with moderate emphysema and scattered prominent pleural parenchymal scarring some groundglass in the lingula has increased correlate to exclude superimposed early infiltrate/pneumonitis 2. Large 8.6 cm hypervascular mass within the left liver lobe HCC remains to be excluded, differential considerations include hepatic adenoma and FNH. 3. Extensive bruising along the posterior lumbar back with a subcutaneous hematoma measuring 14.4 x 7.3 x 5.0 cm -Laboratory studies: Hemoglobin 12.4 with subsequent of 10.4, sodium 137, potassium 4.2, BUN 27, creatinine 1.13 -Home cardiac medications: Xarelto 15 mg p.o. daily, metoprolol tartrate 75 mg p.o. twice daily, losartan 100 mg p.o. daily, atorvastatin 80 mg p.o. daily -Prior stress test: 04/13/2022: Partially reversible inferolateral defect -Echocardiogram: KORI 07/09/2024: Normal EF, PFO and moderate TR -Cardiac catheterization: 05/04/2022 normal coronaries with left dominant system Review Of Systems: At the time of my exam: CONSTITUTIONAL: Denies fever or chills. HEENT: Denies blurred vision, vision changes. CARDIOVASCULAR: Denies chest pain. Denies orthopnea. Denies PND. Denies palpitations, dizziness, or syncope. RESPIRATORY: Denies shortness of breath, wheezing, or cough. Denies hemoptysis. GASTROINTESTINAL: Denies abdominal pain. Denies nausea or vomiting. Denies bleeding. HEMATOLOGIC: Denies bleeding disorders. GENITOURINARY: Denies hematuria. SKIN: Denies puritis. Denies rash. PHYSICAL EXAMINATION: This is a 74-year-old gentleman in no apparent distress at the time of my examination. VITAL SIGNS: Reviewed. HEENT: Head is atraumatic, normocephalic. Pupils are equal, round. Sclerae anicteric. Conjunctivae are clear. Mucous membranes of the mouth are moist. Neck is supple. There is no elevated jugular venous pressure. No carotid bruit is heard. CHEST EXAMINATION: Clear to auscultation bilaterally. No wheezes rales or rhonchi. Respirations even and nonlabored. HEART EXAMINATION: Heart regular, positive S1 and S2. No S3. No S4. No clicks, rubs or murmurs. ABDOMEN: Soft, nontender. Bowel sounds are heard. No organomegaly noted. EXTREMITIES: 2+ peripheral pulses with no evidence of peripheral edema and no calf tenderness noted. NEUROLOGIC EXAMINATION: Patient is awake, alert and oriented x3. Large hematoma noted to lower back with ice packs and abdominal binder in place for compression. Assessment: 1. Large lumbar back hematoma status post fall 2. Atrial fibrillation, persistent, currently maintaining sinus mechanism a nticoagulated at home on Xarelto 3. Large left liver lobe mass 4. Hypertension, currently with episodes of hypotension Plan: From cardiology's perspective continue to hold Xarelto. We will decrease losartan. Repeat hemoglobin in the morning. We will continue to follow the patient and provide further recommendations accordingly. Thank you kindly for this consultation. Nurse practitioner note has been reviewed, I agree with documented findings and plan of care. Patient was seen and examined. Past Medical History Past Medical History: Atrial Fibrillation, GERD/Reflux, Hyperlipidemia, Hypertension, Osteoarthritis (OA) Additional Past Medical History / Comment(s): SOB. Hx gout, see Dr. Ramirez's H & P History of Any Multi-Drug Resistant Organisms: None Reported Past Surgical History: Appendectomy, Cardiac Ablation, Joint Replacement, Orthopedic Surgery Additional Past Surgical History / Comment(s): Cardioversion, TOTAL LEFT SHOULDER REPLACEMENT, LEFT KNEE replacement, RIGHT KNEE REPLACEMENT X3,. PICC LINE INSERTION(for infection after knee replacement) AND LATER REMOVED. Past Anesthesia/Blood Transfusion Reactions: No Reported Reaction Additional Past Anesthesia/Blood Transfusion Reaction / Comment(s): No hx blood transfusion. Past Psychological History: Anxiety, Depression Smoking Status: Former smoker Past Alcohol Use History: Occasional Past Drug Use History: Marijuana - Past Family History Son(s) Family Medical History: No Reported History Mother Family Medical History: No Reported History Medications and Allergies Home Medications Medication Instructions Recorded Confirmed Type Atorvastatin [Lipitor] 80 mg PO DAILY 02/20/16 06/13/25 History Pantoprazole [Protonix] 40 mg PO BID 02/20/16 06/13/25 History Fexofenadine HCl 180 mg PO W/SUPPER 05/25/18 06/13/25 History Losartan Potassium 100 mg PO W/SUPPER 05/25/18 06/13/25 History Citalopram Hydrobromide 40 mg PO DAILY 04/01/20 06/13/25 History [Citalopram HBr] Rivaroxaban [Xarelto] 15 mg PO W/SUPPER 11/03/20 06/13/25 History Metoprolol Tartrate [Lopressor] 75 mg PO BID 11/05/20 06/13/25 History Magnesium 400 mg PO DAILY 12/11/24 06/13/25 History allopurinoL 100 mg PO W/SUPPER 12/11/24 06/13/25 History Cholecalciferol [Vitamin D3 (125 125 mcg PO MOWEFR 06/13/25 06/13/25 History Mcg = 5000 Iu)] Ferrous Sulfate [Iron (65 MG 325 mg PO DAILY 06/13/25 06/13/25 History Elemental)] HYDROcodone/APAP 5-325MG [Wanette 1 tab PO Q6HR PRN 3 Days #12 tab 06/13/25 Rx 5-325] Tamsulosin HCl [Flomax] 0.4 mg PO DAILY 06/13/25 06/13/25 History Vit C/E/Zn/Coppr/Lutein/Zeaxan 1 cap PO W/SUPPER 06/13/25 06/13/25 History [Preservision Areds 2 Softgel] buPROPion XL [Wellbutrin XL] 150 mg PO DAILY 06/13/25 06/13/25 History Allergies Allergy/AdvReac Type Severity Reaction Status Date / Time No Known Allergies Allergy Verified 06/13/25 15:02 Physical Exam Vitals: Vital Signs Temp Pulse Pulse Resp BP BP BP 06/14/25 07:00 97.7 F 69 14 93/58 06/14/25 02:00 70 17 06/14/25 01:54 97.7 F 70 17 108/68 06/13/25 22:15 128/73 06/13/25 22:00 18 06/13/25 20:00 97.5 F L 86 18 173/91 06/13/25 18:35 59 L 18 102/66 06/13/25 15:15 97.7 F 81 17 119/77 Pulse Ox 06/14/25 07:00 98 06/14/25 02:00 06/14/25 01:54 97 06/13/25 22:15 06/13/25 22:00 06/13/25 20:00 98 06/13/25 18:35 98 06/13/25 15:15 100 Intake and Output 06/13/25 06/14/25 06/14/25 22:59 06:59 14:59 Other: Voiding Method Toilet Toilet # Voids 2 Weight 90.718 kg Results 06/14/25 04:48 06/14/25 04:48 Cardiac Enzymes 06/14/25 Range/Units 04:48 AST 29 (17-59) U/L CBC 06/14/25 Range/Units 04:48 WBC 8.59 (4.50-10.00) 10*3/uL RBC 3.47 L (4.40-5.60) 10*6/uL Hgb 10.4 L (13.0-17.0) g/dL Hct 31.7 L (39.6-50.0) % Plt Count 185 (140-440) 10*3/uL Comprehensive Metabolic Panel 06/14/25 Range/Units 04:48 Sodium 137 (137-145) mmol/L Potassium 4.2 (3.5-5.1) mmol/L Chloride 105 (98-107) mmol/L Carbon Dioxide 22 (22-30) mmol/L BUN 27 H (9-20) mg/dL Creatinine 1.13 (0.66-1.25) mg/dL Glucose 107 H (74-99) mg/dL Calcium 9.2 (8.4-10.2) mg/dL AST 29 (17-59) U/L ALT 27 (4-49) U/L Alkaline Phosphatase 87 (38-126) U/L Total Protein 6.1 L (6.3-8.2) g/dL Albumin 3.5 (3.5-5.0) g/dL Current Medications Generic Name Dose Route Start Last Admin Trade Name Freq PRN Reason Stop Dose Admin Acetaminophen 650 mg 06/13/25 16:42 Acetaminophen Tab 325 Mg Tab PO Q6HR PRN Fever and/ or Pain Hydrocodone Bitart/Acetaminophen 1 each 06/13/25 13:44 06/14/25 06:27 Hydrocodone/Apap 5-325mg 1 Each Tab PO 1 each Q4HR PRN Administration Moderate Pain (Scale 4 to 6) Allopurinol 100 mg 06/13/25 17:30 06/13/25 18:35 Allopurinol 100 Mg Tab PO 100 mg W/SUPPER HAILEY Administration Atorvastatin Calcium 80 mg 06/14/25 09:00 06/14/25 08:47 Atorvastatin 80 Mg Tab PO 80 mg DAILY HAILEY Administration Bupropion HCl 150 mg 06/14/25 09:00 06/14/25 08:47 Bupropion Xl 150 Mg Tab.Er.24h PO 150 mg DAILY HAILEY Administration Citalopram Hydrobromide 40 mg 06/14/25 09:00 06/14/25 08:46 Citalopram Hydrobromide 20 Mg Tab PO 40 mg DAILY HAILEY Administration Ferrous Sulfate 325 mg 06/14/25 09:00 06/14/25 08:47 Ferrous Sulfate 325 Mg Tab PO 325 mg DAILY HAILEY Administration Hydromorphone HCl 0.5 mg 06/13/25 23:39 06/14/25 08:45 Hydromorphone 0.5 Mg/0.5 Ml Syringe IVP 0.5 mg Q4HR PRN Administration Pain Loratadine 10 mg 06/13/25 17:30 06/13/25 18:35 Loratadine 10 Mg Tab PO 10 mg W/SUPPER HAILEY Administration Losartan Potassium 50 mg 06/14/25 17:30 Losartan 50 Mg Tab PO W/SUPPER HAILEY Metoprolol Tartrate 75 mg 06/13/25 21:00 06/13/25 21:45 Metoprolol Tartrate 25 Mg Tab PO 75 mg BID HAILEY Administration Naloxone HCl 0.2 mg 06/13/25 13:44 Naloxone 0.4 Mg/Ml 1 Ml Vial IV Q2M PRN Opioid Reversal Pantoprazole Sodium 40 mg 06/13/25 21:00 06/14/25 08:47 Pantoprazole 40 Mg Tablet PO 40 mg BID HAILEY Administration Tamsulosin HCl 0.4 mg 06/14/25 09:00 06/14/25 08:46 Tamsulosin 0.4 Mg Cap.Er.24h PO 0.4 mg DAILY HAILEY Administration Intake and Output 06/13/25 06/14/25 06/14/25 22:59 06:59 14:59 Other: Voiding Method Toilet Toilet # Voids 2 Weight 90.718 kg 06/14/25 04:48 06/14/25 04:48
--- NOTE | 2025-06-14 12:50 | P.DS ---
Providers Date of admission: 06/13/25 13:48 Expected date of discharge: 06/14/25 Attending physician: Gonzalez Vega Consults: 06/13/25 13:44 Consult Physician Routine Consulting Provider: Marco Koch Consult Reason/Comments: hematoma Do you want consulting provider notified?: Already Contacted Consult Physician Routine Consulting Provider: Jaiden Patton Consult Reason/Comments: afib rx management Do you want consulting provider notified?: Yes Primary care physician: Jf Reddy Hospital Course: Discharge Diagnosis: Hematoma status post mechanical fall Incidental liver mass Hepatocellular carcinoma versus focal nodular hyperplasia versus hepatic adenoma versus hemangioma A-fib with ablation HTN GERD Gout HLD Depression Hospital Course: Patient is a 74-year-old male with PMHx of A-fib with ablation, HLD, gout, depression who was admitted for hematoma status post mechanical fall and incidental liver mass. ED vitals included T 97.8, HR 74, RR 18, BP 131/82, 99% on RA. Significant ED ED labs included WBC 11.77, hemoglobin 12.4, platelets 235, PT 13.6, INR 1.3, sodium 139, potassium 4.7, BUN 24, creatinine 1.22. EKG showed sinus rhythm at 71 bpm, left axis deviation, SC interval prolonged, first-degree heart block. 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 Patient's home Xarelto was held and general surgery and cardiology were consulted. General surgery recommended abdominal binder. Cardiology recommended holding Xarelto for 3 days but a reversal was not indicated. While inpatient, hepatitis panel, CEA, alpha-fetoprotein and CEA 199 were ordered however you are still pending. On discharge, patient's hematoma is within previous markings and less edematous. Patient is hemodynamically stable. Labs on discharge include WBC 8.59, hemoglobin 10.4, platelets 185 and BMP unremarkable. Wound care to be completed with 4x4 gauze pads and abdominal binder as needed. At home, patient showed continue to hold Xarelto until Monday. New medications include losartan 50 mg p.o. with supper and Gleason for pain. Patient to follow-up with PCP, cardiology, and general surgery. Patient seen and examined at bedside. Patient states he is feeling better today and has more mobility. He states his pain is controlled. He denies any other complaints at this time. Vital signs reviewed and stable. Physical examination: Vital signs reviewed General: non toxic, no distress, appears at stated age, normal weight Derm: no unusual rashes/lesions, warm, large hematoma to lumbar back within markings and less edematous than yesterday Head: atraumatic, normocephalic, symmetric Eyes: EOMI, anicteric sclera, pupils equal round reactive to light ENT: Nose and ears atraumatic Mouth: no lip lesion, mucus membranes moist Cardiovascular: S1S2 reg, no murmur, no edema Lungs: CTA bilateral, no rhonchi, no rales, no accessory muscle use Abdominal: soft, nontender to palpation, no guarding Ext: muscle strength 5 out of 5 in all 4 extremities grossly, no gross muscle atrophy Neuro: CN II-XI grossly intact, no gross focal neuro deficits Psych: Alert, oriented to person, place, and time A total of greater than 30 minutes of time were spent preparing this complex discharge summary. Patient was discharged on 06/14/2025. Natalie Pandey DO PGY-1 IM Dictation was produced using [email or web address] dictation software. Please excuse any grammatical, word or spelling errors. I have seen and evaluated the patient today. Discussed with the resident and agree with the residents finding and plan as documented in the resident's note. Changes highlighted in blue font. Patient Condition at Discharge: Stable Plan - Discharge Summary New Discharge Prescriptions: New HYDROcodone/APAP 5-325MG [Gleason 5-325] 1 tab PO Q6HR PRN 3 Days #12 tab PRN Reason: Severe Pain Losartan [Cozaar] 50 mg PO W/SUPPER 30 Days tab Continue Atorvastatin [Lipitor] 80 mg PO DAILY Pantoprazole [Protonix] 40 mg PO BID Fexofenadine HCl 180 mg PO W/SUPPER Citalopram Hydrobromide [Citalopram HBr] 40 mg PO DAILY Rivaroxaban [Xarelto] 15 mg PO W/SUPPER Metoprolol Tartrate [Lopressor] 75 mg PO BID allopurinoL 100 mg PO W/SUPPER Magnesium 400 mg PO DAILY Cholecalciferol [Vitamin D3 (125 Mcg = 5000 Iu)] 125 mcg PO MOWEFR buPROPion XL [Wellbutrin XL] 150 mg PO DAILY Ferrous Sulfate [Iron (65 MG Elemental)] 325 mg PO DAILY Vit C/E/Zn/Coppr/Lutein/Zeaxan [Preservision Areds 2 Softgel] 1 cap PO W/SUPPER Tamsulosin HCl [Flomax] 0.4 mg PO DAILY Discontinued Losartan Potassium 100 mg PO W/SUPPER Discharge Medication List Atorvastatin [Lipitor] 80 mg PO DAILY 02/20/16 [History] Pantoprazole [Protonix] 40 mg PO BID 02/20/16 [History] Fexofenadine HCl 180 mg PO W/SUPPER 05/25/18 [History] Citalopram Hydrobromide [Citalopram HBr] 40 mg PO DAILY 04/01/20 [History] Rivaroxaban [Xarelto] 15 mg PO W/SUPPER 11/03/20 [History] Metoprolol Tartrate [Lopressor] 75 mg PO BID 11/05/20 [History] Magnesium 400 mg PO DAILY 12/11/24 [History] allopurinoL 100 mg PO W/SUPPER 12/11/24 [History] Cholecalciferol [Vitamin D3 (125 Mcg = 5000 Iu)] 125 mcg PO MOWEFR 06/13/25 [History] Ferrous Sulfate [Iron (65 MG Elemental)] 325 mg PO DAILY 06/13/25 [History] HYDROcodone/APAP 5-325MG [Gleason 5-325] 1 tab PO Q6HR PRN 3 Days #12 tab 06/13/25 [Rx] Tamsulosin HCl [Flomax] 0.4 mg PO DAILY 06/13/25 [History] Vit C/E/Zn/Coppr/Lutein/Zeaxan [Preservision Areds 2 Softgel] 1 cap PO W/SUPPER 06/13/25 [History] buPROPion XL [Wellbutrin XL] 150 mg PO DAILY 06/13/25 [History] Losartan [Cozaar] 50 mg PO W/SUPPER 30 Days tab 06/14/25 [Rx] Follow up Appointment(s)/Referral(s): Jaiden Patton MD [STAFF PHYSICIAN] - 1-2 days Marco Koch DO [Doctor of Osteopathic Medicine] - 1-2 days Jf Reddy DO [Primary Care Provider] - 1-2 days Patient Instructions/Handouts: Fall Prevention for Older Adults (ED), Hematoma (ED) Activity/Diet/Wound Care/Special Instructions: Follow-up with general surgery, cardiology and primary care doctor. There were also were incidental findings seen on your CT that you should follow-up with your primary care doctor for. There was a mass along with other incidental findings seen on your chest CT Hold Xarelto until Monday. Discharge Disposition: HOME SELF-CARE
[2025-06-14 13:34] LABS: Alpha Fetoprotein, Tumor Mkr <3.00 ng/mL (0.00-7.90); Carcinoembryonic Antigen <2.0 ng/mL (0.0-4.9)
[2025-06-14 14:11] LABS: Hepatitis B Surface AB- Quant 3.5 mIU/mL
[2025-06-14] MEDS ORDERED: LOSARTAN 50 MG TAB PO SCH (17:30)
[2025-06-14 21:37] LABS: Hepatitis A Antibody IgM Nonreactive (Nonreactive); Hepatitis B Surface Antigen Nonreactive (Nonreactive); Hepatitis C IgG Antibody Nonreactive (Nonreactive)
[2025-06-16 11:54] LABS: Hepatitis B Virus DNA, Quant <10 IU/mL (<10); Log HBV IU/mL <1.00 (<1.00)
[2025-06-16 13:54] LABS: Hepatitis C Virus RNA, Qual Not detected (Not detected)
== END 2025-06-14 13:33 | disposition home or self-care (01) ==
LOC: EC 09:29 → 6NMEDSUR 13:48
PROVIDERS: ADMIT Student in an Organized Health Care Education/Training Program; ATTEND Student in an Organized Health Care Education/Training Program
DX: S30.0XXA Contusion of lower back and pelvis, initial encounter (principal); W10.9XXA Fall (on) (from) unspecified stairs and steps, initial encounter; J44.9 Chronic obstructive pulmonary disease, unspecified; J43.9 Emphysema, unspecified; I95.9 Hypotension, unspecified; I44.0 Atrioventricular block, first degree; I48.19 Other persistent atrial fibrillation; R16.0 Hepatomegaly, not elsewhere classified; E78.5 Hyperlipidemia, unspecified; F32.A Depression, unspecified; F41.9 Anxiety disorder, unspecified; I10 Essential (primary) hypertension; K21.9 Gastro-esophageal reflux disease without esophagitis; M10.9 Gout, unspecified; M19.90 Unspecified osteoarthritis, unspecified site; Z79.01 Long term (current) use of anticoagulants; Z79.899 Other long term (current) drug therapy; Z87.891 Personal history of nicotine dependence; Z96.612 Presence of left artificial shoulder joint; Z96.653 Presence of artificial knee joint, bilateral
CPT/HCPCS: 96376; 96374; 99285; 36415; 93005; 86803; 87350; 86707; 86705; 86709; 87521; 87522; 80053; 80048; 87517; 82378; 83735; 85025 ×2; 85610; 85730; 86706; 87340; 82105; 86301; 86708; 86704; 70450; 71260; 74177; G0378 ×2; J1171; Q9967